=== PATIENT | male | born 1945 | race Caucasian/White ===

== ENCOUNTER → 2016-11-23 | Outpatient (CLI) | payer BC ==
[2016-11-23 10:19] LABS: BASOPHILS # (AUTO) 0.04 10*3/UL; BASOPHILS % (AUTO) 0.4 % (0-1); EOSINOPHILS % (AUTO) 0.9 % (0-8); HEMATOCRIT 44.1 % (42.0-52.0); HEMOGLOBIN 14.6 g/dL (14.0-18.0); IMM GRAN % (AUTO) 0.3 % (0-5); IMM GRAN# (AUTO) 0.03 10*3/UL; LYMPHOCYTES # (AUTO) 1.89 10*3/uL; LYMPHOCYTES % (AUTO) 18.4 % (10-50); MEAN CORPUSCULAR HEMOGLOBIN 28.5 PG (27-31); MEAN CORPUSCULAR HGB CONC 33.1 g/dL (33-37); MEAN PLATELET VOLUME 10.2 FL (7.4-12.2); MONOCYTES # (AUTO) 0.47 10*3/UL (0.3-0.8); MONOCYTES % (AUTO) 4.6 % (5-15); NEUTROPHILS # (AUTO) 7.76 10*3/UL; NEUTROPHILS % (AUTO) 75.4 % (50-80); RDW COEFFICIENT OF VARIATION 15.9 % (11.5-14.5); RED BLOOD COUNT 5.12 10^6/uL (4.70-6.10); WHITE BLOOD COUNT 10.28 10^3/uL (4.8-10.8)
[2016-11-23 10:22] LABS: PLATELET MORPHOLOGY COMMENT NORMAL MORPHOLOGY (NORM)
[2016-11-23 10:41] LABS: BILIRUBIN,TOTAL 0.5 mg/dL (0.3-1.2); CALCIUM 9.4 mg/dL (8.7-10.7); CREATININE 1.1 mg/dL (0.70-1.50); LDL CHOLESTEROL,CALCULATED 150.8 mg/dL; POTASSIUM 4.2 meq/L (3.8-5.2); TOTAL PROTEIN 7.6 g/dL (6.1-8.0)
== END ==
LOC: MOB LAB 09:32
PROVIDERS: ATTEND Internal Medicine
DX: G93.1 Anoxic brain damage, not elsewhere classified (principal); I15.9 Secondary hypertension, unspecified; R60.9 Edema, unspecified; E78.2 Mixed hyperlipidemia; Z12.5 Encounter for screening for malignant neoplasm of prostate
CPT/HCPCS: 36415; 80053; 80061; 85025; G0103

== ENCOUNTER → 2016-11-25 | Outpatient (CLI) | payer BC | LOC: MMPC 11:11 | PROVIDERS: ATTEND Internal Medicine | DX: E78.2 Mixed hyperlipidemia (principal); I50.9 Heart failure, unspecified; G93.1 Anoxic brain damage, not elsewhere classified; K25.1 Acute gastric ulcer with perforation; Z23 Encounter for immunization | CPT/HCPCS: 90656; 90715; G0463 ==

== ENCOUNTER 2017-03-23 09:02 | Inpatient (IN) | payer BC ==
[2017-03-23] MEDS ORDERED: NORMAL SALINE 10 ML SYRINGE FLUSH IVP PRN ×2 (09:16→13:49)
--- NOTE | 2017-03-23 09:20 | PDOC ---
General Adult HPI - General Chief Complaint: Altered Mental Status Stated Complaint: mental status changes Date Seen by Provider: 03/23/17 Time Seen by Provider: 09:10 Source: POSITIVE: Patient, Spouse Exam Limitations: POSITIVE: No limitations Nurse's Notes Reviewed & Considered: Yes - History of Present Illness Initial Comment: The patient is a 72-year-old male who is brought to the emergency department with increased weakness cough and confusion. His reports that over the past several days he is had increased confusion and his mouth has been dry. He apparently has a history of a chronic left hip problem and has limited mobility at home at baseline. Over the past couple of days he has been even weaker and it was very difficult to even get him into the car. He had to be assisted out of the car into a wheelchair to get into the emergency room. His reports that he has had increased cough especially at night over the past couple of days as well. The patient himself denies any headache, chest pain, abdominal pain, vomiting or diarrhea. His reports that over the past several days he has had some urinary symptoms. She states that he thinks he has to go however that is then unable. She has not noticed any fever. He has had several minor falls at home over the weekend. Have you received a tetanus shot in the past 10 years?: Unknown - Patient Home Medications Home Medications: Home Medications Docusate Sodium [Doc-Q-Lace] 1 cap PO BID cap 08/18/14 Melatonin 2 tab PO HS PRN tab 08/18/14 Multivitamin [Uhb-Iurfow-Aktyi] 1 tab PO QD tab 08/18/14 Thiamine Mononitrate [Vitamin B-1] 1 tab PO QD #90 tab 12/06/14 Furosemide 1 tab PO QAM #90 tab 11/25/16 Linaclotide [Linzess] 1 cell PO DAILY #90 cap 11/25/16 Pantoprazole Sodium 1 tab PO QD #90 tab 11/25/16 Acetaminophen/Diphenhydramine [Tylenol Pm Ex-Strength Caplet] 2 each PO BEDTIME 03/23/17 - Patient Allergies Allergies/Adverse Reactions: Allergies Allergy/AdvReac Type Severity Reaction Status Date / Time No Known Allergies Allergy Verified 03/23/17 09:12 Past Medical History - heen HEENT History: Blindness Additional HEENT History: left eye Cardiovascular History: Hypertension Respiratory History: Denies History Gastrointestinal History: Denies History Genitourinary History: Denies History Endocrine History: Denies History Musculoskeletal History: Back Pain, Joint Pain Prosthesis or Implant: No Additional Musculoskeletal History: left hip and knee pain Neurological History: Denies History Blood Disorders: Denies History Psychiatric History: Denies History History of Sexually Transmitted Diseases: No Cancer History: Denies History History of MDRO: No History of Other Communicable Diseases: No Alcohol Use: Rarely Substance Use Type: None Previous Surgical History: Yes Type / Date of Surgery: BILATERAL CATARACTS, TONSILLECTOMY Anesthesia Reactions: No Malignant Hyperthermia: No Significant Family History: Cancer, Other (please comment) Additional Family History: FATHER WITH BRAIN CANCER Past Medical History Reviewed: Reviewed - No Changes ROS - Limitations ROS Limitations: No Limitations Constitution: DENIES: Chills, Fever Cardiovascular: REPORTS: Edema (He does have chronic edema in the lower extremities). DENIES: Chest Pain, Heart Palpitations Respiratory: REPORTS: Cough Non Productive. DENIES: Hurts To Breathe Neurological: REPORTS: Confusion, Weakness (Generalized weakness, no focal weakness). DENIES: Headache, Numbness Gastrointestinal: DENIES: Abdominal Pain, Nausea, Vomitting, Diarrhea Endocrine: REPORTS: Other (Dry mouth, no history of diabetes) Genitourinary: REPORTS: Difficulty Urinating (As above) Eyes: REPORTS: Denies Symptoms ENT: REPORTS: Denies Symptoms Skin: DENIES: Rash General Adult Exam - General Appearance General Appearance: POSITIVE: Cooperative, No Acute Distress, Other (The patient is awake) - HEENT HEENT: POSITIVE: Head Inspection Nml, Eyes Inspection Nml, Pharynx Inspect. Nml (No visible swelling in the mouth or posterior oropharynx), Dry Mucous Membranes - Neck Neck: POSITIVE: Normal Inspection. NEGATIVE: Lymphadenopathy - Respiratory Respiratory: POSITIVE: No Respiratory Distress, Other (Diminished breath sounds bilaterally) - Cardiovascular Cardiovascular: POSITIVE: Regular Rate & Rhythm, No Murmur Peripheral Pulses: Dorsalis-pedis (R): 2+, Dorsalis-pedis (L): 2+ - Abdomen Abdomen: Normal Bowel Sounds: (All Quadrants), No Guarding: (All Quadrants), No Rebound: (All Quadrants), No Distention: (All Quadrants) - Skin Skin: POSITIVE: Normal Color, Other (Several minor abrasions to the shins bilaterally, no clinical evidence of cellulitis) - Extremities Additional Extremities Details: He does have edema in the lower extremities bilaterally - Neurological / Psychological Neurological: POSITIVE: Oriented X3, software support representative Normal As Tested, Motor Normal, Sensation Normal, Other (No focal neurologic deficits) General Adult Progress - Results Reviewed by me Xrays/CTs/US Reviewed by me: Yes Discussed with Radiologist: Yes Radiology Findings: CT scan of his head reveals age-related atrophy with no acute findings per radiologist. Chest x-ray shows increased markings in the perihilar region and a small right pleural effusion per radiologist. Lab Results Reviewed: Yes (some chemistries still pending) Lab Results:: Laboratory Results 03/23/17 03/23/17 Range/Units 09:31 09:41 WBC 10.98 H (4.8-10.8) 10^3/uL RBC 4.91 (4.70-6.10) 10^6/uL Hgb 13.7 L (14.0-18.0) g/dL Hct 42.5 (42.0-52.0) % MCV 86.6 (80-90) FL MCH 27.9 (27-31) PG MCHC 32.2 L (33-37) g/dL RDW Std Deviation 51.1 H (39-50) fL RDW Coeff of Jyoti 16.5 H (11.5-14.5) % Plt Count 279 (140-350) 10*3/uL MPV 10.1 (7.4-12.2) FL Immature Gran % (Auto) 0.2 (0-5) % Neut % (Auto) 80.3 H (50-80) % Lymph % (Auto) 12.6 (10-50) % [place] % (Auto) 5.3 (5-15) % Eos % (Auto) 1.1 (0-8) % Baso % (Auto) 0.5 (0-1) % Immature Gran # (Auto) 0.02 10*3/UL Neut # (Auto) 8.83 10*3/UL Lymph # (Auto) 1.38 10*3/uL [place] # (Auto) 0.58 (0.3-0.8) 10*3/UL Eos # (Auto) 0.12 10*3/UL Baso # (Auto) 0.05 10*3/UL WBC Morphology Comment Normal morphology (NORM) Plt Morphology Comment Normal morphology (NORM) RBC Morph Comment Normal morphology (NORM) VBG pH 7.46 H (7.32-7.42) VBG pCO2 31 L (45-55) mmHg VBG HCO3 22 (22-26) mmol/L VBG Base Excess -2 (-2-2) MMOL/L Troponin I 0.000 (< 0.040) ng/mL EKG Interpreted/Reviewed By Me:: Yes EKG Interpretation:: POSITIVE: Normal Sinus Rhythm, Normal Rate, Normal Intervals, Normal ST/T, Other (He does have Q waves in the inferior leads which were present on a previous EKG from 2013, no acute changes in his EKG) - Patient's Progress MDM / ED Course: Blood cultures and lactate were drawn with IV start. The patient did receive a 1 L bolus of normal saline. The patient's oxygenation is borderline dipping into the upper 80s at times. His blood work reveals a mildly elevated white count. Chemistries on the venous blood gas were normal for the most part except for slightly elevated BUN 30 and his blood sugar was 1:30. His pH was normal. Chest x-ray shows increased interstitial markings in the perihilar region and small right-sided pleural effusion. Troponin is normal and EKG shows no acute findings. BNP is pending. CT scan of his head reveals no acute findings. The patient's increased confusion, cough and chest x-ray findings are consistent clinically with pneumonia. A catheter UA will be obtained and the patient will be started on Rocephin and Zithromax for treatment of pneumonia. I did discuss these findings with the patient and his family. Dr. Rosales has agreed to admit the patient for further treatment. - Consult Counseled: POSITIVE: Patient, Family, RE: Lab Results, RE: Radiology Results, RE : DX Patient Care Time - Estimated PCT Patient Care Time (In Minutes): 35 Vital Signs - Recent Vital Signs Vital Signs: Vital Signs (Last 8 hours) Temp Pulse Resp BP Pulse Ox 03/23/17 09:03 96.5 F L 75 18 141/100 92 - VS Reviewed Vital Signs Reviewed: Yes Discharge Clinical Impression: Weakness generalized, Fall at home, Pneumonia Discharge Disposition: Admit to Inpatient Condition: Fair Date Decision to Admit to Inpatient: 03/23/17 Time Decision to Admit to Inpatient: 11:15
[2017-03-23] MEDS: Sodium Chloride 0.9% 1,000 ML PRIMARY IV ONE ×2 (09:30→11:32)
[2017-03-23 09:42] LABS: BASOPHILS # (AUTO) 0.05 10*3/UL; BASOPHILS % (AUTO) 0.5 % (0-1); EOSINOPHILS # (AUTO) 0.12 10*3/UL; EOSINOPHILS % (AUTO) 1.1 % (0-8); HEMATOCRIT 42.5 % (42.0-52.0); HEMOGLOBIN 13.7 g/dL (14.0-18.0); LYMPHOCYTES # (AUTO) 1.38 10*3/uL; MEAN CORPUSCULAR HEMOGLOBIN 27.9 PG (27-31); MEAN CORPUSCULAR HGB CONC 32.2 g/dL (33-37); MEAN CORPUSCULAR VOLUME 86.6 FL (80-90); MEAN PLATELET VOLUME 10.1 FL (7.4-12.2); MONOCYTES # (AUTO) 0.58 10*3/UL (0.3-0.8); MONOCYTES % (AUTO) 5.3 % (5-15); NEUTROPHILS # (AUTO) 8.83 10*3/UL; NEUTROPHILS % (AUTO) 80.3 % (50-80); RED BLOOD COUNT 4.91 10^6/uL (4.70-6.10)
[2017-03-23 09:43] LABS: PLATELET MORPHOLOGY COMMENT NORMAL MORPHOLOGY (NORM); RBC MORPHOLOGY COMMENT NORMAL MORPHOLOGY (NORM); WBC MORPHOLOGY COMMENT NORMAL MORPHOLOGY (NORM)
--- NOTE | 2017-03-23 09:47 | EKG ---
[address] [address] Measurements Intervals Munith Rate: 67 P: 52 MS: 238 QRS: 52 QRSD: 103 T: 25 QT: 406 QTc: 421 Interpretive Statements SINUS RHYTHM WITH FIRST DEGREE AV BLOCK POSSIBLE INFERIOR MYOCARDIAL INFARCTION , PROBABLY OLD Compared to ECG 07/10/2014 17:31:18 First degree AV block now present Myocardial infarct finding now present Electronically Signed On 03-23-17 15:05:17 MDT by Buddy Jose [email or web address]
[2017-03-23 10:05] LABS: VENOUS PH 7.46 (7.32-7.42)
--- NOTE | 2017-03-23 10:46 | DI ---
CT HEAD W/O CONTRAST,03/23/2017 9:16 AM: Clinical History: Generalized weakness and confusion. Previous Exam: July 16, 2014 Findings: Multiple helically acquired CT images are obtained through the brain without contrast. There is stabl e diffuse age-related volume loss. There is no mass, hemorrhage or midline shift. The surrounding sof t tissue and osseous structures are unremarkable. Paranasal sinuses are unremarkable. Impression: Diffuse age-related volume Loss otherwise unremarkable.
--- NOTE | 2017-03-23 10:47 | DI ---
XR CXR 2VW PA/LAT,03/23/2017 9:16 AM: Clinical History: Cough Previous Exam: July 17, 2014 Findings: PA and lateral views of the chest are obtained, and demonstrate a small right pleural effusion. There is mild cardiomegaly. There is some mild increased interstitial markings in the perihilar regio n. There is no mass. There is no infiltrate. Impression: New small right pleural effusion otherwise unchanged.
[2017-03-23] MEDS ORDERED: cefTRIAXone Inj 1 GM in Sodium Chloride 0.9% 100 ML IV ONE (11:18)
--- NOTE | 2017-03-23 12:17 | PDOC ---
History and Physical - History of Present Illness Date and Time of Service: 03/23/2017 1:40 PM Chief Complaint: Weakness for the last 3-4 days, cough also the last 3-4 days History of Present Illness: This is a 72 years old male with past medical history significant for history of GERD, osteoarthritis and obesity who was brought to the hospital for evaluation because of weakness this is being going on for the last 3-4 days, in addition he did report some cough with no significant phlegm production. He denied chest pain, denied shortness of breath. Evaluation in the ER raised the possibility of early pneumonia he was given antibiotics after culture was taken and he was admitted. He said normally he is able to get up and go to the bathroom using a walker, he needs 2 people assist, based on his description now. He said he would have a bowel movement every 3-4 days. Rest of review of systems is unremarkable. Past Medical History Medical History: 1. GERD. 2. Admission in 2013 at that time he had perforated peptic ulcer needed surgery then he developed acute respiratory failure and was transferred to [facility] post surgery. 3. Osteoarthritis. 4. On Oxygen at night Surgical History: 1. Surgery for perforated peptic ulcer 2013. 2. Cataract. 3. Tonsillectomy Family History: Reviewed an Not Pertinent Past Social History: Used to smoke, rarely drinks. No drugs. Lives with his . Tobacco Use: Former Smoker Substance Use Type: None Alcohol Use: Rarely Medication / Allergies Home Medications: Home Medications Medication Instructions Recorded Confirmed Type Docusate Sodium [Doc-Q-Lace] 1 cap PO BID cap 08/18/14 03/23/17 History Melatonin 2 tab PO HS PRN tab 08/18/14 03/23/17 History Multivitamin [Bmg-Xuxcga-Vcagi] 1 tab PO QD tab 08/18/14 03/23/17 History Thiamine Mononitrate [Vitamin B-1] 1 tab PO QD #90 tab 12/06/14 03/23/17 Clinic Furosemide 1 tab PO QAM #90 tab 11/25/16 03/23/17 Clinic Linaclotide [Linzess] 1 cell PO DAILY #90 cap 11/25/16 03/23/17 Clinic Pantoprazole Sodium 1 tab PO QD #90 tab 11/25/16 03/23/17 Clinic Acetaminophen/Diphenhydramine 2 each PO BEDTIME 03/23/17 03/23/17 History [Tylenol Pm Ex-Strength Caplet] Allergies/Adverse Reactions: Allergies Allergy/AdvReac Type Severity Reaction Status Date / Time No Known Allergies Allergy Verified 03/23/17 09:12 Review of Systems - Review of Systems All Systems: Reviewed & No Additional Complaints Except as Stated Exam - General General Appearance: POSITIVE: No Acute Distress, Obese - Head Head Exam: POSITIVE: Normal Inspection, Atraumatic - Eye Eye Exam: POSITIVE: Normal Appearance - ENT ENT Exam: POSITIVE: Normal Exam - Neck Neck Exam: POSITIVE: Normal Inspection - Respiratory Respiratory Exam: POSITIVE: Clear to Auscultation - Bilaterally - Cardiovascular Cardiovascular Exam: POSITIVE: RRR - GI/Abdominal GI/Abdominal Exam: POSITIVE: Normal Bowel Sounds, Non Tender, Non Distended, Soft - Rectal Rectal Exam: POSITIVE: Deferred - External Exam: POSITIVE: Deferred - Extremities Extremities Exam: POSITIVE: Normal Inspection - Back Back Exam: POSITIVE: Normal Inspection - Neurological Neurological Exam: POSITIVE: Alert, CN II-XII Intact, No Facial Droop Additional Neurological Exam Details: He did not know the day, but he knows the month and the year. He knows he is in the hospital. There is a some weakness in the left leg compared to the right one but he said this is old. - Psychiatric Psychiatric Exam: POSITIVE: Normal Affect - Integumentary Additional Integumentary Exam Details: Few scabs noted on the anterior shins, he said these are old being going on for few years on and off. Results - Labs CBC and BMP: 03/23/17 09:41 03/23/17 09:41 - EKG Data Rate: Normal EKG Shows Normal: Sinus Rhythm - EKG Data Additional EKG Details: Sinus rhythm with first-degree AV block, there is Q-wave in lead 3. - Imaging Status: Report Reviewed by Me (CT of the head showed diffuse age-related volume loss otherwise unremarkable, Chest x-ray showed no small right pleural effusion , there is some mild increased interstitial marking in the perihilar region) Assessment and Plan - Patient Problems (1) Pneumonia Current Visit: Yes Status: Acute Comment: He was put on antibiotics will continue with antibiotics. He is weak so we'll ask PT and OT to work with him. (2) GERD (gastroesophageal reflux disease) Current Visit: Yes Status: Acute Comment: Continue previous medications (3) DVT prophylaxis Current Visit: Yes Status: Acute Comment: Will put him on SCDs Photo / Body Diagrams - Uploaded Photos Uploaded Photos:
[2017-03-23 12:32] LABS: BILIRUBIN,URINE NEGATIVE (NEG); COLOR,URINE YELLOW; GLUCOSE, URINE (UA) NEGATIVE (NEG); NITRATE,URINE POSITIVE (NEG); OCCULT BLOOD,URINE NEGATIVE (NEG); PH,URINE 5.5 (5.0-8.5); PROTEIN,URINE NEGATIVE (NEG)
[2017-03-23 12:37] LABS: CLARITY,URINE CLEAR (CLEAR)
[2017-03-23 12:46] LABS: AMPHETAMINE SCREEN NEGATIVE (NEG); BACTERIA,URINE FEW; CANNABINOID SCREEN,URINE NEGATIVE (NEG); COCAINE SCREEN NEGATIVE (NEG); METHADONE URINE SCREEN NEGATIVE (NEG); METHAMPHETAMINES SCREEN,URINE NEGATIVE (NEG); OPIATE SCREEN,URINE NEGATIVE (NEG); SQUAMOUS EPITHELIAL CELL,UR FEW; URINE SAMPLE TYPE CATH SPECIMEN; URINE SPECIFIC GRAVITY - MAN 1.015
[2017-03-23] MEDS ORDERED: LIDOCAINE W/ SODIUM BICARB 0.5 ML SYR SUBD PRN (13:49)
[2017-03-23 14:11] LABS: BLOOD UREA NITROGEN 27 mg/dL (7-22); BUN/CREATININE RATIO 24.54 (6-20); CALCIUM 8.9 mg/dL (8.7-10.7); MAGNESIUM 2.2 mg/dL (1.6-2.4)
[2017-03-23 14:13] LABS: EST GLOMERULAR FILTRATION > 60 (>60 ml/min/1.73m(2))
[2017-03-23] MEDS: Sodium Chloride 0.9% 1,000 ML IV SCH ×2 (15:11→19:04)
[2017-03-23] MEDS: DOCUSATE 100 MG CAPSULE PO SCH (20:56)
[2017-03-24 06:01] LABS: BASOPHILS # (AUTO) 0.08 10*3/UL; BASOPHILS % (AUTO) 1.1 % (0-1); EOSINOPHILS # (AUTO) 0.19 10*3/UL; EOSINOPHILS % (AUTO) 2.5 % (0-8); HEMATOCRIT 38.2 % (42.0-52.0); HEMOGLOBIN 12.4 g/dL (14.0-18.0); LYMPHOCYTES # (AUTO) 1.83 10*3/uL; MEAN CORPUSCULAR HEMOGLOBIN 28.5 PG (27-31); MEAN CORPUSCULAR HGB CONC 32.5 g/dL (33-37); MEAN CORPUSCULAR VOLUME 87.8 FL (80-90); MONOCYTES # (AUTO) 0.56 10*3/UL (0.3-0.8); MONOCYTES % (AUTO) 7.4 % (5-15); NEUTROPHILS # (AUTO) 4.91 10*3/UL; NEUTROPHILS % (AUTO) 64.5 % (50-80); RED BLOOD COUNT 4.35 10^6/uL (4.70-6.10)
[2017-03-24 06:05] LABS: PLATELET MORPHOLOGY COMMENT NORMAL MORPHOLOGY (NORM); RBC MORPHOLOGY COMMENT NORMAL MORPHOLOGY (NORM); WBC MORPHOLOGY COMMENT NORMAL MORPHOLOGY (NORM)
[2017-03-24 06:15] LABS: CALCIUM 8.1 mg/dL (8.7-10.7)
[2017-03-24 06:16] LABS: SERUM ALBUMIN 3.1 g/dL (3.5-4.8)
[2017-03-24] MEDS ORDERED: MELATONIN PO PRN (09:04)
--- NOTE | 2017-03-24 09:10 | PDOC(PROG) ---
Date and Time of Service: 03/24/2017 9:07 AM Interval History: Subjective Patient feels stronger today compared to yesterday, no significant cough, denying chest pain, denying shortness of breath. Objective : Data - Labs CBC and BMP: 03/24/17 05:55 03/24/17 05:55 Labs - Last 24 Hours: Laboratory Results 03/23/17 03/23/17 03/24/17 Range/Units 12:27 18:00 05:55 WBC 7.60 (4.8-10.8) 10^3/uL RBC 4.35 L (4.70-6.10) 10^6/uL Hgb 12.4 L (14.0-18.0) g/dL Hct 38.2 L (42.0-52.0) % MCV 87.8 (80-90) FL MCH 28.5 (27-31) PG MCHC 32.5 L (33-37) g/dL RDW Std Deviation 51.3 H (39-50) fL RDW Coeff of Jyoti 16.3 H (11.5-14.5) % Plt Count 223 (140-350) 10*3/uL MPV 10.0 (7.4-12.2) FL Immature Gran % (Auto) 0.4 (0-5) % Neut % (Auto) 64.5 (50-80) % Lymph % (Auto) 24.1 (10-50) % [place] % (Auto) 7.4 (5-15) % Eos % (Auto) 2.5 (0-8) % Baso % (Auto) 1.1 H (0-1) % Immature Gran # (Auto) 0.03 10*3/UL Neut # (Auto) 4.91 10*3/UL Lymph # (Auto) 1.83 10*3/uL [place] # (Auto) 0.56 (0.3-0.8) 10*3/UL Eos # (Auto) 0.19 10*3/UL Baso # (Auto) 0.08 10*3/UL WBC Morphology Comment Normal morphology (NORM) Plt Morphology Comment Normal morphology (NORM) RBC Morph Comment Normal morphology (NORM) Sodium 146.0 H (135-145) meq/L Potassium 4.4 (3.8-5.2) meq/L Chloride 114.0 H (98-112) meq/L Carbon Dioxide 23.0 (23-33) meq/L Anion Gap 9.0 (5-20) BUN 22.0 (7-22) mg/dL Creatinine 1.0 (0.70-1.50) mg/dL Estimated GFR Acid Purification Equipment Operator BUN/Creatinine Ratio 22.00 H (6-20) Glucose 100.0 (78-110) mg/dL Calculated Osmolality 304.50 H (267-292) mOsm/kg Lactic Acid 0.6 L (0.70-2.10) MMOL/L Calcium 8.1 L (8.7-10.7) mg/dL Total Bilirubin 0.5 (0.3-1.2) mg/dL AST 19.0 L (21-57) IU/L ALT 35.0 (21-72) IU/L Alkaline Phosphatase 81.0 (38-126) IU/L Total Protein 6.7 (6.1-8.0) g/dL Albumin 3.1 L (3.5-4.8) g/dL Globulin 3.6 (2.50-4.10) g/dL Albumin/Globulin Ratio 0.80 L (1.3-2.0) mg/g Ur Collection Type Cath specimen Urine Color Yellow Urine Clarity Clear (CLEAR) Urine pH 5.5 (5.0-8.5) Ur Specific [place] 1.015 (1.005-1.030) U Specif Grav (Refrac) 1.015 Urine Protein Negative (NEG) mg/dl Urine Glucose (UA) Negative (NEG) mg/dL Urine Ketones Negative (NEG) Urine Occult Blood Negative (NEG) Urine Nitrate Positive H (NEG) Urine Bilirubin Negative (NEG) Urine Urobilinogen 1.0 (0.2) EU/dL Ur Leukocyte Esterase Negative (NEG) Urine RBC None (NONE) /hpf Urine WBC None (NONE) Ur Squamous Epith Cells Few (NONE) Ur Renal Epithelial Cell None (NONE) Urine Crystals None Urine Bacteria Few (NONE) Urine Casts None (NONE) Urine Mucus Few (NONE) Urine Trichomonas None (NONE) Urine Yeast None (NONE) Ur Culture Indicated? Culture not set Urine Opiates Screen Negative (NEG) Ur Buprenorphine Negative (NEG) Ur Oxycodone Screen Negative (NEG) Urine Methadone Screen Negative (NEG) Ur Propoxyphene Screen Negative (NEG) Barbiturate Screen Negative (NEG) U Tricyclic Antidepress Negative (NEG) Phencyclidine Screen Negative (NEG) Amphetamines Screen Negative (NEG) U Methamphetamines Scrn Negative (NEG) Benzodiazepines Screen Negative (NEG) Cocaine Screen Negative (NEG) U Marijuana (THC) Screen Negative (NEG) Objective : Exam - General General Appearance: No Acute Distress, Cooperative, Obese - Head Head Exam: Normal Inspection - Eye Eye Exam: Normal Appearance - ENT ENT Exam: Normal Exam - Neck Neck Exam: Normal Inspection - Respiratory Respiratory Exam: Clear to Auscultation - Bilaterally - Cardiovascular Cardiovascular Exam: RRR - GI/Abdominal GI/Abdominal Exam: Normal Bowel Sounds, Non Tender, Non Distended, Soft - Rectal Rectal Exam: Deferred - External Exam: Deferred - Extremities Extremities Exam: Normal Inspection - Neurological Neurological Exam: Alert, Oriented x 3, CN II-XII Intact, No Facial Droop Additional Neurological Exam Details: His speech is more clear today compared to yesterday. Still have weakness in the left leg, he says this is old. Assessment and Plan - Patient Problems (1) Pneumonia Current Visit: Yes Status: Acute Comment: Continue current antibiotics. Continue PT and OT will speak with the senior planner about swing bed for him. (2) GERD (gastroesophageal reflux disease) Current Visit: Yes Status: Acute Comment: Same med (3) DVT prophylaxis Current Visit: Yes Status: Acute Comment: We'll start him on Lovenox Photo / Body Diagrams - Uploaded Photos Uploaded Photos:
[2017-03-24] MEDS: PANTOPRAZOLE 40 MG TABLET PO SCH (09:18)
[2017-03-24] MEDS: DOCUSATE 100 MG CAPSULE PO SCH ×2 (09:19→20:21)
[2017-03-24] MEDS: Linaclotide Cap 290 MCG CAPSULE PO SCH (09:25)
[2017-03-24] MEDS: Multivitamin Tab 1 TAB PO SCH (09:25)
--- NOTE | 2017-03-24 11:31 | PT.PROG ---
Progress Note Progress Note: S: pt. reports pain in both of his knees, a desire to go home, and decreased motivation to do activity. In talking to his she states he needs to improve a lot functionally before he can return home because she his having difficulty assisting him with his ADLs in his current state. She also states he does not perform HEPs despite her assistance. O: pt. continues to display weakness throughout his body, more significantly in his LE. His R leg has minimal strength while his L has almost none. pt. performed bed mobility exercise with max assist, walked 15ftx2 with max assist, and sit to stand 5x with max assist over the course of the treatment. pt. performed marching in his wheel chair 2x10 each leg and LAQ 2x10 each leg. A: pt. had tremendous difficulty with functional activity and exercise. He showed greater weakness in the L leg than in the R. He seems content with his sedentary lifestyle, so finding the motivation to perform activity seems to be the biggest problem facing this pt. P: continue to work functional activity; sit to stand, walking, standing balance , seated balance, and bed mobility. continue to work LE/UE musculature to improve strength and functional ability. Morteza Garrison SPT
[2017-03-24] MEDS: Sodium Chloride 0.9% 1,000 ML IV SCH (11:33)
[2017-03-24] MEDS: cefTRIAXone Inj 1 GM in Sodium Chloride 0.9% 100 ML IV SCH (13:20)
[2017-03-24] MEDS ORDERED: LIDOCAINE HCL 2 % 10 ML JELLY URO-JECT TOPICAL ONE (13:31)
--- NOTE | 2017-03-24 16:24 | PT.PROG ---
Progress Note Progress Note: 03/24/17 3:00-3:30 S: pt. was given a catheter prior to session and complained about the discomfort. He was more willing to participate in therapy for the afternoon session. O: pt. displayed similar weakness to the morning session. Pt. performed seated marching to a step 2x10 each leg to a 1" step and 1x10 to a 3" step. Pt. then ambulated with max assist 15ft 3x. He performed 5 sit to stands over the course of his session. A: pt. was able to get significantly more activation in his L LE with activity, likely linked to his motivation level being higher this afternoon. He tolerated exercise better and put in a good effort with what was asked of him. continuing to try to motivate and stress the importance of activity will be crucial to continue improving. P: Progress his ambulation by at least 15 more ft. for the next session, and target more sit to stand activity.
--- NOTE | 2017-03-24 16:34 | OT.PROG ---
Progress Note Progress Note: S: pt made every excuse possible to get out of attending therapy. pt states that he likes to be pulled backwards in w/c. O: Pt was seen in his room, and was in a supine position in bed. After waking pt, he was assisted with transition to EOB with Max A x2. ADL dressing of LE was completed with Max A and transferred approx 8-10 ft x2 man assist for safety. After PT completed treatment, he completed UE exercises with Red T- band to increase strength to assist with postural transitions. He completed exercises in all planes, all with BUE x 15. Pt was returned to his room by PT. A: pt is not motivated and uses any excuses possible to get out of completing work with therapy or complete any activities Ind. He demonstrates some flexion contracture. P: continue to progress per plan of care.
[2017-03-25] MEDS: NYSTATIN 15 GM POWDER TOPICAL PRN (02:09)
[2017-03-25] MEDS: ENOXAPARIN SODIUM 40 MG/0.4 ML SYRINGE SUBCUT SCH (08:50)
[2017-03-25] MEDS: TAMSULOSIN 0.4 MG CAPSULE PO SCH (08:50)
[2017-03-25] MEDS: Linaclotide Cap 290 MCG CAPSULE PO SCH (08:50)
[2017-03-25] MEDS: PANTOPRAZOLE 40 MG TABLET PO SCH (08:50)
[2017-03-25] MEDS: DOCUSATE 100 MG CAPSULE PO SCH ×2 (08:50→21:36)
[2017-03-25] MEDS: Multivitamin Tab 1 TAB PO SCH (08:50)
--- NOTE | 2017-03-25 10:13 | PTI REPORT ---
Thank you for the referral of Jose Bullard. He was seen on 03/23/17 for an inpatient evaluation secondary to generalized weakness. SUBJECTIVE: The patient is a 72-year-old male with a primary complaint of weakness over the last three to four days. The patient has also had a cough over the last three to four days. The patient lives at home with his in a modular that has a ramp to get inside and no other stairs to traverse once in the house. The patient uses a four wheeled walker in the house. The patient is currently being seen for pneumonia, GERD, and DVT prophylaxis. The patient is large/ obese and difficult to understand at times. The patient could potentially have cognition problems. PAST MEDICAL HISTORY: Past medical history can be found in the patient's medical record. OBJECTIVE FINDINGS: Strength: The patient demonstrates strength in his upper extremities but was very weak in his lower extremities. His left leg needed assistance to move in general. He was able to lift his right leg slightly. Transfers: The patient required assistance from three therapists in order to stand up. Once standing, the patient required two therapists and a walker to support his stance. The patient was unable to get back into bed without assistance from the therapist to lift his upper body and his lower extremities. ASSESSMENT: The patient demonstrates weakness in his lower extremities likely due to a sedentary lifestyle and would benefit from inpatient physical therapy to get him up and moving. The patient's lifestyle and lack of motivation forces the need for constant supervision or else the patient will go back to old habits and gradually worsen over time. Problem List: Patient's general size Generalized weakness Lack of motivation to get out of bed and participate with physical therapy Patient's is becoming more unwilling/unable to take care of the patient at home Short-Term Goals: To be met by discharge from inpatient: Patient will be able to walk to the bathroom with the assistance of two therapists and a walker. Long-Term Goals: To be met following discharge from inpatient: Patient will be able to ambulate independently with four wheeled walker x5 minutes. Patient will return to a functional level where he could participate in a care home. TREATMENT PLAN: Patient will be seen B.I.D during the week and one time per day over the weekend as an inpatient to work on bed mobility, transfers, ambulation, and overall range of motion and strengthening. INITIAL TREATMENT: Treatment today consisted of the initial evaluation followed by sitting the patient at the side of the bed. We then assisted him to stand and assisted him with transferring to the commode. The patient then stood for approximately three minutes. Dictated by: KIN Saldana Supervised by: EAMON Colvin
--- NOTE | 2017-03-25 10:35 | OTI REPORT ---
Thank you for the referral of Jose Bullard. He was seen on 03/23/17 for an occupational therapy inpatient evaluation secondary to weakness. SUBJECTIVE: The patient is a 72-year-old male who is being seen secondary to having pneumonia and decreased abilities to perform his activities of daily living. The patient reports that he [place] He verbalized a couple of times today that his main goal was to sit in his chair and watch TV. He also stated the "sheep are probably vat cleaner than me". The patient reports that his helps him with dressing, showers, etc. The patient reports decreased ability to take care of himself lately. He states his main activity throughout the day is sitting in his recliner and eating. He states he uses a [employer] coffee can to urinate in. He states his is having more difficulty getting him up to stand. The patient also has quite a bit of visual difficulties; he stated there was a bear outside of the window. It was hard to get a thorough history on the patient as he does have difficulty emphasizing his words. They do tend to slur together. The patient did demonstrate some confusion today as well. PAST MEDICAL HISTORY: Past medical history can be found in the patient's medical record. OBJECTIVE FINDINGS: General observations: The patient was supine in bed upon the therapist's arrival. The patient is missing a lot of his dentition. He did have a lot of food drooling out of his mouth on the front of his robe. We did change this for him. Nursing states they have not noticed any eating or swallowing difficulties at this time. We will continue to assess that with the pneumonia diagnosis. Bed mobility: The patient requires max assist x2 to transfer from supine to sit. While sitting edge of bed, the patient demonstrates poor trunk strength and is not able to sit edge of bed. He requires mod assist to stay sitting edge of bed. Transfers: The patient requires max assist x2-3 to complete all transfers. Range of motion: While sitting edge of bed with assistance for his back, the patient demonstrated 0 to 90 degrees of active shoulder flexion. He had full elbow flexion/extension and full wrist flexion/extension. Strength: Strength within the available range in the shoulders was 4/5 for flexion and 3+/5 for abduction. Elbow flexion/extension was 4+/5. Wrist flexion/extension was 3+/5 bilaterally. Activities of daily living: We did try to have the patient dress self. He requires max assist for lower extremity dressing; he was able to lift his foot slightly to don lower extremity clothing and socks. He did not have the balance while sitting edge of bed in order to complete all dressing activities. The patient requires mod assist for upper extremity dressing as he does have difficulty keeping his balance while seated edge of bed. Edema: The patient's legs and upper extremities are swollen. Cognition: The patient's cognition is a concern. He does have difficulty with his expression of speech; it is difficult to understand what the patient is saying. The patient demonstrates some memory difficulties as well. The patient 's cognition will be further assessed when he is a little more stable. ASSESSMENT: Problem List: Decreased ability to perform functional transfers Decreased ability to perform activities of daily living Decreased strength Patient will benefit from a cognitive assessment as he demonstrates noticeable cognitive deficits Short-Term Goals: To be met by discharge from inpatient: Patient will be able to sit edge of bed independently x5 minutes without loss of balance. Patient will be able to dress lower extremities with mod assist with use of adaptive equipment. Patient will improve upper extremity strength to 4+/5. Patient will be able to complete a commode transfer with mod assist and complete toilet hygiene with min assist. Long-Term Goals: To be met following discharge from inpatient: Patient will be able to return home, demonstrating independence with his transfers and ADLs. Patient will be admitted to a swingbed status to continue to improve his ADLs and functional transfers for independence at home. TREATMENT PLAN: Patient will be seen B.I.D during the week and one time per day over the weekend as an inpatient to address the above goals and objectives. The patient will more than likely need a swingbed rehabilitation stay as he requires max assist for most activities. The patient would like to return home. INITIAL TREATMENT: Treatment today consisted of the initial evaluation followed by the patient coming from supine to sit with max assist x2. While sitting edge of bed we worked on sitting balance. The patient required mod assist to stay edge of bed. We then worked on lower extremity dressing which the patient was dependent with. The patient required max assist x2 to transfer from sit to stand to pull up Depends. The patient has a lot of difficulty standing for longer periods of time, even with use of walker. Cognitively the patient needed a lot of verbal cues as to where to place hands when completing functional transfers. MTDD
--- NOTE | 2017-03-25 10:44 | OT AM DAY ---
Diagnosis : Weakness AM - Occupational Therapy S: The patient was in chair upon the therapist's arrival. He had taken a whirlpool bath with the nursing staff. The patient's was also present today and we spoke to her. She states the patient has lost a lot of his function and she is not able to care for him at home anymore. She states the patient will have to improve with his abilities quite immensely before she will feel comfortable to take care of him and take him home. The patient's states last year the patient was at the [facility] for a month or two and when he came home he was on a quadruped cane and was walking all over the place. She states that lately he has hardly been able to walk and when he does she has to help hold him up and they have had quite a few close calls with falling. She states that they do argue and when the patient does not agree with her, she just "gives up" and has a hard time dealing with him. The patient and his did argue over a few activities that she has been helping him with at home. The patient states it is too hard for him to bed into bed but the patient's states that he just won't do it and won't help himself get into bed. She has been having to lift his legs and trunk in order to help him get into bed. O: The patient sat edge of chair and we had the patient try to dress lower extremities. The patient required max assist to don shorts and socks. The patient required min assist to dress upper extremities while sitting in chair. Downstairs in therapy we worked on upper extremity strengthening including upper body ergometer x3 minutes forward followed by wall pulleys with two kilograms for shoulder extension, rows, biceps curls, shoulder adduction x10 repetitions with bilateral upper extremities. The patient stated he had to urinate; we brought the patient back to his room. He is having difficulty moving his Depends over to urinate. The therapist talked to the nurse about possibly making this a little more functional for the patient. Nursing did state that the patient was incontinent throughout the night as well. A: The patient still requires max assist with a lot of different activities. We did have a long discussion with the patient and his about their goals and how we would like it if the patient would participate in a daily therapy program in order to improve his abilities to go home. This patient definitely needs a lot of work and improvement before he can return home. P: Continue seeing patient BID during the week and one time per day over the weekend for upper extremity strengthening, ADLs, and overall functional mobility. SHERYL
[2017-03-25] MEDS ORDERED: ACETAMINOPHEN 325 MG TABLET PO PRN (11:05)
--- NOTE | 2017-03-25 11:05 | PDOC(PROG) ---
Date and Time of Service: 03/25/2017 11 AM Interval History: Subjective Patient denying new symptoms, maybe is more stronger today compared to yesterday. Yesterday had problem emptying his bladder and had a catheter inserted. Apparently he had this problem also at home sometimes. When asked what level his hip pain is and his knee pain it was difficult to assess, his thinks that he is in more pain than what he is describing. He is still weak on the left leg compared to the right leg and this is also old. Objective : Data - Labs CBC and BMP: 03/24/17 05:55 03/24/17 05:55 Objective : Exam - General General Appearance: No Acute Distress, Cooperative, Morbidly Obese - Head Head Exam: Normal Inspection, Atraumatic - Eye Eye Exam: Normal Appearance - ENT ENT Exam: Normal Exam - Neck Neck Exam: Normal Inspection - Respiratory Respiratory Exam: Clear to Auscultation - Bilaterally - Cardiovascular Cardiovascular Exam: RRR - GI/Abdominal GI/Abdominal Exam: Normal Bowel Sounds, Non Tender, Non Distended, Soft - Rectal Rectal Exam: Deferred - External Exam: Deferred - Extremities Extremities Exam: Normal Inspection - Back Back Exam: Normal Inspection - Neurological Neurological Exam: Alert, CN II-XII Intact, No Facial Droop Additional Neurological Exam Details: There is weakness in the left leg compared to the right leg he is describing this as being old. This increased generalized tone. Question cogwheel rigidity - Psychiatric Psychiatric Exam: Flat Affect Assessment and Plan - Patient Problems (1) Pneumonia Current Visit: Yes Status: Acute Comment: Continue current antibiotics. (2) GERD (gastroesophageal reflux disease) Current Visit: Yes Status: Acute Comment: Same med (3) DVT prophylaxis Current Visit: Yes Status: Acute Comment: He is on Lovenox (4) Urinary retention Current Visit: Yes Status: Acute Comment: We put him on Flomax continue, will try to pull his catheter out tomorrow (5) Osteoarthritis Current Visit: Yes Status: Acute Comment: There is weakness in the left leg compared to the right, I think will do an MRI of his back, will do x-rays of his hips and knee. his pain level I is difficult to assess as he is having difficulty describing it. Will write some Tylenol. Question consult orthopedic if his pain worsen. Has some increased tone, but I don't see tremor, will need to see his gait to see whether he has parkinsonian features Photo / Body Diagrams - Uploaded Photos Uploaded Photos:
--- NOTE | 2017-03-25 12:19 | PT.PROG ---
Progress Note Progress Note: 03/25/2017 9:00-9:30 S: pt. showed little motivation for therapy. He stated that he was tired. O: pt. performed seated marching for 2x10 each leg on a 2" box. He then performed sit to stand 10x with seat elevated. lastly the pt: performed 15ft walk 2x and one 20ft walk. He complained of being light headed after walking on the second set, but returned to normal with some rest. A: Pt. is reluctant to perform activity, but will do what is asked of him here with enough encouragement. This would likely not be the case if he were to return home. his reluctancy to perform physical activity, his general unmotivated behavior, and his struggling to get him to participate in any exercise will all eventually lead to him being back in the hospital if he were to return home. P: perform more sit to stand exercise this afternoon (10x). increase walking distance to 4x15ft.
--- NOTE | 2017-03-25 14:20 | DI ---
XR HIP B/L MIN 2VW, EACH HIP,03/25/2017 10:47 AM: Clinical History: Bilateral hip pain. Previous Exam: None at this facility. Findings: AP view of the pelvis as well as AP and frog-leg views of both hips are obtained, and demonstrate adv anced degenerative changes bilaterally. There is complete loss of joint space bilaterally with sclero sis and subchondral cyst formation. Degenerative changes of the lumbar spine are seen. A nonobstructi ve bowel gas pattern is noted. No pathologic calcifications are seen. Impression: Advanced degenerative osteoarthritis of both hips.
--- NOTE | 2017-03-25 14:23 | DI ---
XR KNEE 3 VW,03/25/2017 10:46 AM: Clinical History: Left knee pain. Previous Exam: None at this facility. Findings: 3 views of the left knee are obtained, and demonstrate diffuse osteopenia. There is loss of joint spa ce predominantly within the medial compartment and to a lesser degree within the lateral and anterior compartments. There is some osteophyte formation. Peripheral vascular calcifications are seen. Alignment is near-anatomic and no fractures are seen. Impression: Diffuse degenerative changes of the left knee. Peripheral vascular disease.
[2017-03-25] MEDS: cefTRIAXone Inj 1 GM in Sodium Chloride 0.9% 100 ML IV SCH (15:03)
--- NOTE | 2017-03-25 16:50 | DI ---
MRI LUMBAR SPINE W/O CN,03/25/2017 10:45 AM: Clinical History: Previous Exam: July 12, 2014 Findings: Multiplanar MR images are obtained through the lumbar spine without contrast. Bony alignment is anatomic. No fractures are seen. There are some endplate degenerative changes which are new involving the L4/5 intervertebral disc space. There are some slightly worsening facet arthropathy as well. There has been significant decrease in the size of the psoas muscles and paraspinal musculature. The spinal cord descends normally with normal course, caliber and signal characteristics in a normal conus at the L1 level. Individual intervertebral disc spaces: L1/2: At the L1/2 level, there has been increasing degenerative changes with osteophyte formation ext ends laterally into the left far lateral space and deep to the left psoas muscle. This was not seen o n the prior exam or was not as prominent. There is no significant central canal nor neural foraminal narrowing. L2/3: No significant stenosis. L3/4: No significant stenosis. L4/5: There is disc desiccation, annular fissuring and a broad-based disc bulge with increasing loss of intervertebral disc height at this level and a broad-based disc bulge causing some mild central ca nal stenosis and mild bilateral neural foraminal narrowing. L5/S1: There is some new annular fissuring without significant central canal stenosis. There is mild to moderate bilateral lateral recess stenosis. IMPRESSION: 1. Interval degenerative changes of the endplates at L1/2 with some osteophyte formation causing mass effect of the left under the psoas muscle in the far lateral disc space. This could be causing some pain, but would be less likely to cause weakness. 2. Interval decrease in muscle mass of the psoas muscles and the paraspinal musculature. This could b e due to prolonged inactivity or generalized muscle wasting process. Correlate clinically. 3. Mild increasing degenerative changes of lower lumbar spine at L4/5 and L5/S1 where there is now mi ld to moderate bilateral lateral recess stenosis.
--- NOTE | 2017-03-26 08:23 | PT.PROG ---
Progress Note Progress Note: 03/25/2017 3:30pm-4:00 S:pt. did not want to participate this afternoon more than usual stating it was because he was tired from moving around for all his imaging and testing done today. O: pt. performed sit to stand 10x from his bed with emphasis on getting his shoulders forward and using his hands to press up off the surface he is on. pt. then ambulated 15ft. 3x still complaining of light headedness after, but feels fine with sufficient rest. A: pt. has the physical ability to participate and improve from session to session, but still looks for any excuse to not participate requiring our physical and mental assistance to get him through each session. P: continue to improve his functional activities to help him gain more independence including sit to stand, walking, and bed mobility.
--- NOTE | 2017-03-26 09:12 | PDOC(PROG) ---
Date and Time of Service: 03/26/2017 9:09 AM Interval History: Subjective Patient is denying new symptoms. His cough improved. No shortness of breath. Still weak though. Objective : Data - Labs CBC and BMP: 03/24/17 05:55 03/24/17 05:55 Objective : Exam - General General Appearance: No Acute Distress, Obese - Head Head Exam: Normal Inspection, Atraumatic - Eye Eye Exam: Normal Appearance - ENT ENT Exam: Normal Exam - Neck Neck Exam: Normal Inspection - Respiratory Respiratory Exam: Clear to Auscultation - Bilaterally - Cardiovascular Cardiovascular Exam: RRR - GI/Abdominal GI/Abdominal Exam: Normal Bowel Sounds, Non Tender, Non Distended, Soft - Rectal Rectal Exam: Deferred - External Exam: Deferred - Extremities Extremities Exam: Normal Inspection - Back Back Exam: Normal Inspection - Neurological Neurological Exam: Alert, Oriented x 3, CN II-XII Intact Additional Neurological Exam Details: Unchanged with the weakness still in left lower extremity - Psychiatric Psychiatric Exam: Normal Affect - Integumentary Integumentary Exam: Normal Color Assessment and Plan - Patient Problems (1) Pneumonia Current Visit: Yes Status: Acute Comment: Continue current antibiotics will think about switching him to by mouth either tomorrow or day after, I did speak with the discharge plan about switching him to swing bed and I think it's will not happen until Wednesday (2) GERD (gastroesophageal reflux disease) Current Visit: Yes Status: Acute Comment: Same med (3) DVT prophylaxis Current Visit: Yes Status: Acute Comment: Same med (4) Urinary retention Current Visit: Yes Status: Acute Comment: He is on Flomax will think about maybe taking the catheter out today (5) Osteoarthritis Current Visit: Yes Status: Acute Comment: Wrote for Tylenol when necessary. The x-ray did show advanced osteoarthritis of the hips I did speak with Dr. Mcarthur. He will see him. Lumbar spine MRI showed also degenerative changes. Photo / Body Diagrams - Uploaded Photos Uploaded Photos:
[2017-03-26] MEDS: PANTOPRAZOLE 40 MG TABLET PO SCH (09:37)
[2017-03-26] MEDS: TAMSULOSIN 0.4 MG CAPSULE PO SCH (09:38)
[2017-03-26] MEDS: ENOXAPARIN SODIUM 40 MG/0.4 ML SYRINGE SUBCUT SCH (09:38)
[2017-03-26] MEDS: DOCUSATE 100 MG CAPSULE PO SCH ×2 (09:38→20:05)
[2017-03-26] MEDS: Multivitamin Tab 1 TAB PO SCH (09:38)
[2017-03-26] MEDS: Linaclotide Cap 290 MCG CAPSULE PO SCH (09:39)
--- NOTE | 2017-03-26 11:44 | OT AM DAY ---
Diagnosis : Weakness AM - Occupational Therapy S: The patient appeared ready for therapy. He stated he was okay with getting up. He did ask for shorts. O: The patient was seen in his room, upright in his chair. After visiting with nursing, they declared the patient okay to go downstairs. The patient was assisted with lower extremity dressing with max assist. The patient required max assist x2 to transfer from his chair to wheelchair and he required verbal cues to stand and transfer. The patient has a hard time lower extremities and therefore he is only able to get one leg onto the wheelchair pedals. He requires constant verbal cues to hold his right leg up. The patient was taken downstairs where he completed the upper body ergometer x4 minutes to increase activity tolerance. After PT finished their treatment, the patient completed therapeutic exercise with red theraband in all ranges x10 to increase his strength. He also completed functional reaching task, crossing midline with left and right x10 bilaterally to initiate core strength and overall upper extremity range of motion. Following this activity the patient reported that his neck hurt; most likely due to movement and having to turn and reach. The patient was transferred upstairs with OT and PT. The patient continues to require max assist x2 for transfers. The patient was left in chair with bed alarm on and call light within reach. A: The patient did increase his overall activity tolerance and did participate. His level of motivation is low. We will continue to progress with activity. The patient would prefer most things be done for him rather than do them himself. P: Continue seeing patient BID during the week and one time per day over the weekend for upper extremity strengthening, ADLs, and overall functional mobility. MTDD
--- NOTE | 2017-03-26 11:46 | PT.PROG ---
Progress Note Progress Note: 03/26/2017 9:00am-9:30am S: patient had just awoken an had not received breakfast or medication yet. He was highly unmotivated and unhelpsul to start the day (more than usual), but was better after he ate and received his medication. O: pt. performed bed mobility exercises and education on how to get out of bed and shift weight. pt. then performed 3x20ft walks. A: pt. does seem to participate when he is in the right mood with enough encouragement, but it can be very challenging at times. He is improving in his functional ability and improving his exercise capacity. P: Continue to improve functional activity including bed mobility, come to sit, sitting balance, sit to stand, and walking.
--- NOTE | 2017-03-26 11:50 | OT PM DAY ---
Diagnosis : Weakness PM - Occupational Therapy S: The patient states he did not eat today. He reports that he is not hungry and he has had many tests today including MRIs and x-rays. At first the patient did not want to participate, but he eventually agreed to. O: The patient was seen in his room. Bed mobility was completed with max assist x2. After PT completed a few exercises with the patient in his room, we assisted the patient with a functional transfer approximately 8 feet to wheelchair. The patient was transferred downstairs to therapy. The patient completed some active range of motion exercises in shoulder flexion/extension, shoulder abduction, rows with green theraband, and horizontal abduction/ adduction with green theraband. The patient completed the upper body ergometer x4 minutes to increase his activity tolerance; the patient required a break after each minute. The patient has a hard time holding onto handles while performing the UBE and requires verbal cues to hold on. The patient was returned to his room. He required max assist x2 to transfer from wheelchair to recliner. The patient was left upright in chair with call light within reach and bed alarm on. A: The patient had decreased motivation today. He prefers to have activities completed for him. His activity tolerance may be decreased today as he had to take a break after each minute during the UBE. P: Continue seeing patient BID during the week and one time per day over the weekend for upper extremity strengthening, ADLs, and overall functional mobility. The patient is a possible swingbed candidate; although the therapist questions the patient's overall motivation and ability to show progress. SHERYL
[2017-03-26] MEDS: cefTRIAXone Inj 1 GM in Sodium Chloride 0.9% 100 ML IV SCH (12:49)
--- NOTE | 2017-03-26 13:40 | OT.PROG ---
Progress Note Progress Note: S: pt states he wants to do activities, yet comes up with excuses to not do them. He is ok with staying in hospital a little longer. He reports that he can 't get out of this bed cause it is to soft. He did not report any pain. O: pt was seen in his room this morning and OT assisted PT with bed mobility and transfer to recliner. OT returned later to complete ADL showering. He needed Max A with all showering activities. He also needed Max A with donning of gown and LE pants. He was transferred downstairs for PT. A: pt needs vc's to complete most activities, as he prefers to have people do them for him. Continue to progress and push pt to complete tasks himself. P: continue per plan of care.
[2017-03-26] MEDS: NYSTATIN 15 GM POWDER TOPICAL PRN (20:05)
[2017-03-27] MEDS: TAMSULOSIN 0.4 MG CAPSULE PO SCH (08:52)
[2017-03-27] MEDS: ENOXAPARIN SODIUM 40 MG/0.4 ML SYRINGE SUBCUT SCH (08:52)
[2017-03-27] MEDS: DOCUSATE 100 MG CAPSULE PO SCH ×2 (08:52→21:04)
[2017-03-27] MEDS: CEFUROXIME 500 MG TABLET PO SCH ×2 (08:53→20:13)
[2017-03-27] MEDS: Linaclotide Cap 290 MCG CAPSULE PO SCH (08:53)
[2017-03-27] MEDS: PANTOPRAZOLE 40 MG TABLET PO SCH (08:53)
[2017-03-27] MEDS: Multivitamin Tab 1 TAB PO SCH (08:53)
[2017-03-27] MEDS: AZITHROMYCIN 250 MG TABLET PO SCH (08:53)
--- NOTE | 2017-03-27 13:16 | ORTHO.CON ---
Consult Note - Consult Consult Date: 03/27/17 Reason for Consult: Other (Consultation) Requesting Physician: Dr. Rosales Primary Care Provider: Gulshan Ramirez MD - History of Present Illness History of Present Illness: Patient is a 72-year-old male is coming in to the hospital because of generalized weakness and confusion questionable urinary tract issue versus pneumonia and was worked up because of generalized weakness and part of his workup with complaints of pain in the hip and buttock region was a pelvis x-ray which showed evidence of hip arthritis and a consultation was requested. According to the patient he states 2 weeks ago he was able to walk around inside his house about 10 times per day he states that several years ago he was moving in the direction of having hip replacement surgery when he developed perforated ulcer and then subsequently had encephalopathy. From the history that we could gather between the patient and other healthcare providers is that he had been relatively sedentary for a prolonged period of time and more recently more so. In discussing with therapy he initially would not really because of pain therapy but now is making an effort to try to participate but is still required significant assistance verbal communication reminders just even for simple tasks. He still requires maximum assist with mobilization getting out of a chair to a wheelchair to the bathroom etc. Past Medical History Medical History: 1. GERD. 2. Admission in 2013 at that time he had perforated peptic ulcer needed surgery then he developed acute respiratory failure and was transferred to [facility] post surgery. 3. Osteoarthritis. 4. On Oxygen at night Surgical History: 1. Surgery for perforated peptic ulcer 2013. 2. Cataract. 3. Tonsillectomy Family History: Reviewed an Not Pertinent Past Social History: Used to smoke, rarely drinks. No drugs. Lives with his . Tobacco Use: Former Smoker Substance Use Type: None Alcohol Use: Rarely Medication / Allergies Home Medications: Home Medications Medication Instructions Recorded Confirmed Type Docusate Sodium [Doc-Q-Lace] 1 cap PO BID cap 08/18/14 03/23/17 History Melatonin 2 tab PO HS PRN tab 08/18/14 03/23/17 History Multivitamin [Oid-Nyxciq-Bhtfd] 1 tab PO QD tab 08/18/14 03/23/17 History Thiamine Mononitrate [Vitamin B-1] 1 tab PO QD #90 tab 12/06/14 03/23/17 Clinic Furosemide 1 tab PO QAM #90 tab 11/25/16 03/23/17 Clinic Linaclotide [Linzess] 1 cell PO DAILY #90 cap 11/25/16 03/23/17 Clinic Pantoprazole Sodium 1 tab PO QD #90 tab 11/25/16 03/23/17 Clinic Acetaminophen/Diphenhydramine 2 each PO BEDTIME 03/23/17 03/23/17 History [Tylenol Pm Ex-Strength Caplet] Allergies/Adverse Reactions: Allergies Allergy/AdvReac Type Severity Reaction Status Date / Time No Known Allergies Allergy Verified 03/27/17 06:33 Exam - - Exam: Examination shows that the patient can get his hips close to full extension though does have pain in the buttock region with sitting with flexion to about 100 internal rotation to neutral external rotation about 10 does have pain and discomfort in the buttock and limited motion. Patient with tingling in stocking glove distribution intermittently but at the current time is present from the ankle distally bilaterally he has active dorsiflexion and plantarflexion and I would grade his strength is 5 over 5 of the foot and ankle. Knee strength I would grade as 5 over 5 with extension and flexion still hip flexion does limit some of the testing and he has a fair amount of discomfort with testing of the hips. But has 5 minus over 5 strength. Limited abduction. Otherwise sensory exam is intact. Bilateral lower extremities with edema and swelling from about the knee distally I would grade this as 1-2+. He has brisk refill bilaterally Radiographs of the pelvis show [id number] advanced arthritic changes of both the right and left hip. An MRI of the spine shows that the patient has some rather significant degenerative disc disease he does have a little disc bulging at the L4-5 level with some lateral recess stenosis on the left certainly compared to the right. Degenerative disc disease at multiple other levels otherwise. - Vitals Vital Signs: Vital Signs Temperature 96.8 F Temperature Source Temporal Artery Scan Pulse Rate [Pulse Oximeter] 76 Pulse Rate 64 Respiratory Rate 20 Blood Pressure [Left Radial 124/62 Artery] Blood Pressure [Right Radial 135/55 Artery] Blood Pressure [Right Arm] 132/60 Blood Pressure 146/85 Pulse Ox 97 Oxygen Flow Rate 2 Oxygen Delivery Method Room Air Height 6 ft Weight 126.2 kg Results - Labs CBC and BMP: 03/24/17 05:55 03/24/17 05:55 Assessment and Plan - Assessment / Plan Additional Assessment/Plan Details: Impression: Patient certainly with significant history of deconditioning and weakness exacerbated more recently possibly from an acute either urinary tract or infectious process. Patient with bilateral hip arthritis Patient with left knee arthritis Patient with degenerative disc disease and lumbo-sacral spine with some evidence of spinal stenosis. Plan: The majority of the patient's symptoms above are certainly a long- standing and has slowly likely accumulated these problems and deconditioning from the history there were obtaining from the patient family and other healthcare providers. I certainly think from a radiographic standpoint certainly I joint replacement of the hips could improve the arthritic condition but would it improve the patient overall and I am of the opinion at the current time that he would not be a good candidate nor is this in his best interest. If the patient continued to participate with physical and occupational therapy moving forward and he was able to gain strength and improve his conditioning he might be a candidate for this surgery but he would also need to drop his BMI and noted to be able to do this through an anterior approach. At the current time he will continue to move forward with current plan of care and can follow- up with myself as an outpatient as needed. Discussed this with the patient what multiple questions that were appropriate and we answered them.
--- NOTE | 2017-03-27 13:19 | PDOC(PROG) ---
Interval History: Patient states that he is doing better he did more with the physical therapy today he seems to have more strength. Only took 2 people to help him out of bed instead of 3 according to nursing. He says that his gluteus hurts when he sits a long time or thrill is seen the patient and he does have bilateral hip arthritis . He denies chest pain nausea vomiting and shortness of breath Objective : Data - Labs CBC and BMP: 03/24/17 05:55 03/24/17 05:55 Objective : Exam - General General Appearance: Cooperative - Head Head Exam: Normal Inspection, Atraumatic - Eye Eye Exam: Normal Appearance - Respiratory Respiratory Exam: Clear to Auscultation - Bilaterally, Breathing Non Labored, Normal To Percussion - Cardiovascular Cardiovascular Exam: RRR, No Murmur, No Clicks, No Gallops - Extremities Extremities Exam: No Clubbing Present, No Edema Present Assessment and Plan - Assessment / Plan Additional Assessment/Plan Details: #1 community-acquired pneumonia now on oral antibiotics #2 severe deconditioning told her my colleague that if she is unable to take care of him he is working with physical therapy in the area looks like he is trying to do some more work compared to previous days will discuss further with the social and political studies professor and PT on further planning in regards to this #3 bilateral hip arthritis orthopedic surgery on consult Photo / Body Diagrams - Uploaded Photos Uploaded Photos:
[2017-03-27] MEDS ORDERED: D5W 1,000 ML PRIMARY IV SCH (13:30)
[2017-03-27 20:24] LABS: CALCIUM 8.1 mg/dL (8.7-10.7); SERUM ALBUMIN 3.2 g/dL (3.5-4.8)
[2017-03-27] MEDS: POTASSIUM CHLORIDE 20 MEQ TAB PO SCH ×3 (22:23→23:36)
[2017-03-27] MEDS: NYSTATIN 15 GM POWDER TOPICAL PRN (22:37)
[2017-03-28 06:54] LABS: BASOPHILS # (AUTO) 0.07 10*3/UL; EOSINOPHILS # (AUTO) 0.18 10*3/UL; EOSINOPHILS % (AUTO) 2.6 % (0-8); HEMOGLOBIN 12.8 g/dL (14.0-18.0); MEAN CORPUSCULAR HEMOGLOBIN 28.4 PG (27-31); MEAN CORPUSCULAR HGB CONC 32.8 g/dL (33-37); MEAN CORPUSCULAR VOLUME 86.7 FL (80-90); MEAN PLATELET VOLUME 10.2 FL (7.4-12.2); MONOCYTES # (AUTO) 0.55 10*3/UL (0.3-0.8); MONOCYTES % (AUTO) 7.8 % (5-15); NEUTROPHILS # (AUTO) 4.52 10*3/UL; NEUTROPHILS % (AUTO) 64.1 % (50-80)
[2017-03-28 07:05] LABS: PLATELET MORPHOLOGY COMMENT NORMAL MORPHOLOGY (NORM); RBC MORPHOLOGY COMMENT NORMAL MORPHOLOGY (NORM); WBC MORPHOLOGY COMMENT NORMAL MORPHOLOGY (NORM)
[2017-03-28 07:09] LABS: BUN/CREATININE RATIO 17.77 (6-20); CALCIUM 8.7 mg/dL (8.7-10.7); SERUM ALBUMIN 3.2 g/dL (3.5-4.8)
[2017-03-28] MEDS: POTASSIUM CHLORIDE 20 MEQ TAB PO SCH ×2 (09:21→17:14)
[2017-03-28] MEDS: TAMSULOSIN 0.4 MG CAPSULE PO SCH (09:21)
[2017-03-28] MEDS: AZITHROMYCIN 250 MG TABLET PO SCH (09:21)
[2017-03-28] MEDS: Linaclotide Cap 290 MCG CAPSULE PO SCH (09:21)
[2017-03-28] MEDS: ENOXAPARIN SODIUM 40 MG/0.4 ML SYRINGE SUBCUT SCH (09:22)
[2017-03-28] MEDS: CEFUROXIME 500 MG TABLET PO SCH ×2 (09:22→20:09)
[2017-03-28] MEDS: PANTOPRAZOLE 40 MG TABLET PO SCH (09:22)
[2017-03-28] MEDS: Multivitamin Tab 1 TAB PO SCH (09:22)
[2017-03-28] MEDS: DOCUSATE 100 MG CAPSULE PO SCH ×2 (10:34→20:09)
--- NOTE | 2017-03-28 12:25 | PDOC(PROG) ---
Interval History: No events overnight no complaints I discussed the case with the nurses he seems not to want to do anything for himself and the nurses say he asks for everything and he usually is and wants to have bowel movements and his bed and not get up and go to the bathroom Objective : Data - Labs CBC and BMP: 03/28/17 06:46 03/28/17 06:46 Labs - Last 24 Hours: Laboratory Results 03/27/17 03/28/17 Range/Units 20:06 06:46 WBC 7.05 (4.8-10.8) 10^3/uL RBC 4.50 L (4.70-6.10) 10^6/uL Hgb 12.8 L (14.0-18.0) g/dL Hct 39.0 L (42.0-52.0) % MCV 86.7 (80-90) FL MCH 28.4 (27-31) PG MCHC 32.8 L (33-37) g/dL RDW Std Deviation 50.6 H (39-50) fL RDW Coeff of Jyoti 16.0 H (11.5-14.5) % Plt Count 236 (140-350) 10*3/uL MPV 10.2 (7.4-12.2) FL Immature Gran % (Auto) 0.4 (0-5) % Neut % (Auto) 64.1 (50-80) % Lymph % (Auto) 24.1 (10-50) % Hendricks % (Auto) 7.8 (5-15) % Eos % (Auto) 2.6 (0-8) % Baso % (Auto) 1.0 (0-1) % Immature Gran # (Auto) 0.03 10*3/UL Neut # (Auto) 4.52 10*3/UL Lymph # (Auto) 1.70 10*3/uL Hendricks # (Auto) 0.55 (0.3-0.8) 10*3/UL Eos # (Auto) 0.18 10*3/UL Baso # (Auto) 0.07 10*3/UL WBC Morphology Comment Normal morphology (NORM) Plt Morphology Comment Normal morphology (NORM) RBC Morph Comment Normal morphology (NORM) Sodium 143 145 (135-145) meq/L Potassium 3.7 L 4.3 (3.8-5.2) meq/L Chloride 113 H 113 H (98-112) meq/L Carbon Dioxide 23 23 (23-33) meq/L Anion Gap 7 9 (5-20) BUN 19 16 (7-22) mg/dL Creatinine 1.0 0.9 (0.70-1.50) mg/dL Estimated GFR (>60 ml/min/1.73m(2)) BUN/Creatinine Ratio 19.00 17.77 (6-20) Glucose 117 H 98 (78-110) mg/dL Calculated Osmolality 298.0 H 300.0 H (267-292) mOsm/kg Calcium 8.1 L 8.7 (8.7-10.7) mg/dL Total Bilirubin 0.4 0.6 (0.3-1.2) mg/dL AST 20 L 17 L (21-57) IU/L ALT 35 34 (21-72) IU/L Alkaline Phosphatase 73 83 (38-126) IU/L Total Protein 6.7 6.6 (6.1-8.0) g/dL Albumin 3.2 L 3.2 L (3.5-4.8) g/dL Globulin 3.5 3.4 (2.50-4.10) g/dL Albumin/Globulin Ratio 0.90 L 0.90 L (1.3-2.0) mg/g Objective : Exam - General General Appearance: Cooperative - Respiratory Respiratory Exam: Clear to Auscultation - Bilaterally, Breathing Non Labored, Normal To Percussion, Normal to Percussion and Palpation - Cardiovascular Cardiovascular Exam: RRR, No Murmur, No Clicks, No Gallops - GI/Abdominal GI/Abdominal Exam: Normal Bowel Sounds, Non Tender, Non Distended, Soft - Extremities Extremities Exam: No Clubbing Present, No Edema Present, No Cyanosis Present Assessment and Plan - Patient Problems (1) Pneumonia Current Visit: Yes Status: Acute Comment: Resolved continue 1 more day of by mouth antibiotics (2) Weakness generalized Current Visit: Yes Status: Acute Comment: Patient will like to go to swing bed for further rehabilitation. Considering his weakness and poor stamina (3) Hypernatremia Current Visit: Yes Status: Acute Comment: Improved patient was given D5W for about 4 hours sodium down to 143 today back up to 145 which is still within normal range check labs in the morning Photo / Body Diagrams - Uploaded Photos Uploaded Photos:
[2017-03-28] MEDS: D5W 1,000 ML PRIMARY IV SCH ×2 (16:20→20:39)
[2017-03-28] MEDS: NYSTATIN 15 GM POWDER TOPICAL PRN (20:08)
[2017-03-28 20:21] LABS: CALCIUM 8.4 mg/dL (8.7-10.7); SERUM ALBUMIN 3.5 g/dL (3.5-4.8)
[2017-03-29] MEDS: POTASSIUM CHLORIDE 20 MEQ TAB PO SCH (06:49)
--- NOTE | 2017-03-29 07:26 | PT.PROG ---
Progress Note Progress Note: S: Pt. states he is doing ok today. He agrees to work with PT. C/o fatigue with walking. O: Treatment consisted of functional activities: transporting patient down to the clinic where he performed UBE x 3/3, UE exercises in all planes with wall pulleys, bicep curls with yellow theraband, overhead press with 4 lb theraball, sit to stands x 5, and ambulated 10 feet x 1, 20 feet x 2 with use of FWW and mod assist x 2. He also received moist heat to his B hips in attempts loosen his hips ups and decrease his pain. Pt. was then taken back up to his room and placed in his recliner. Call button within reach and nursing notified. Also swapped out his SW for a FWW as patient tolerated this much better. A: Pt. was more cooperative with exercises today. He continues to require constant v.c for safety, especially with his spontaneity. He also demonstrated smoother ambulation today with use of FWW. When standing he does present with FWW and flexed knees. Unable to stand upright and erect. P: Continue per POC to increase strength and activity tolerance. Breanna Sharma, FAUC[employer] POLISHER
[2017-03-29] MEDS ORDERED: LIDOCAINE HCL 2 % 10 ML JELLY URO-JECT TOPICAL ONE (07:39)
[2017-03-29] MEDS ORDERED: BUPIVACAINE 0.25% W/ EPI - 10 ML VIAL ONE (07:39)
[2017-03-29] MEDS ORDERED: Opium-Belladonna 30-16.2mg 1 EACH SUPP.RECT RECTAL ONE (07:39)
--- NOTE | 2017-03-29 08:17 | PT.PROG ---
Progress Note Progress Note: 03/26/2017 4:30-5:00 S:pt. is feeling tired from this mornings session. He states he wants to work, and will, but he is tires O: pt. performed sit to stand 10x and seated balance/mobility. he also ambulated a total of 40 ft. over 3 sets. A: pt. was complaining of being tired. he was moving slow and required longer rest than normal. He also stopped quicker than normal. He is likely both physically tired, but more so mentally feels he should be tired. it will be important to make sure his morning sessions are good. P: continue to improve functional activity.
[2017-03-29] MEDS: TAMSULOSIN 0.4 MG CAPSULE PO SCH (09:53)
[2017-03-29] MEDS: AZITHROMYCIN 250 MG TABLET PO SCH (09:53)
[2017-03-29] MEDS: PANTOPRAZOLE 40 MG TABLET PO SCH (09:53)
[2017-03-29] MEDS: Multivitamin Tab 1 TAB PO SCH (09:53)
[2017-03-29] MEDS: DOCUSATE 100 MG CAPSULE PO SCH ×2 (09:54→20:05)
[2017-03-29] MEDS: Linaclotide Cap 290 MCG CAPSULE PO SCH (09:54)
[2017-03-29] MEDS: ENOXAPARIN SODIUM 40 MG/0.4 ML SYRINGE SUBCUT SCH (09:54)
[2017-03-29] MEDS: CEFUROXIME 500 MG TABLET PO SCH ×2 (09:54→20:04)
--- NOTE | 2017-03-29 09:55 | PDOC(PROG) ---
Interval History: Doing well has no complaints no shortness of breath no chest pain no nausea no vomiting Objective : Data - Labs CBC and BMP: 03/28/17 06:46 03/28/17 20:10 Labs - Last 24 Hours: Laboratory Results 03/28/17 Range/Units 20:10 Sodium 143 (135-145) meq/L Potassium 4.2 (3.8-5.2) meq/L Chloride 113 H (98-112) meq/L Carbon Dioxide 21 L (23-33) meq/L Anion Gap 9 (5-20) BUN 17 (7-22) mg/dL Creatinine 1.0 (0.70-1.50) mg/dL Estimated GFR (>60 ml/min/1.73m(2)) BUN/Creatinine Ratio 17.00 (6-20) Glucose 120 H (78-110) mg/dL Calculated Osmolality 298.0 H (267-292) mOsm/kg Calcium 8.4 L (8.7-10.7) mg/dL Total Bilirubin 0.5 (0.3-1.2) mg/dL AST 22 (21-57) IU/L ALT 39 (21-72) IU/L Alkaline Phosphatase 85 (38-126) IU/L Total Protein 7.2 (6.1-8.0) g/dL Albumin 3.5 (3.5-4.8) g/dL Globulin 3.8 (2.50-4.10) g/dL Albumin/Globulin Ratio 0.90 L (1.3-2.0) mg/g Objective : Exam - General General Appearance: Cooperative - Head Head Exam: Normal Inspection, Normocephalic, Atraumatic - Respiratory Respiratory Exam: Clear to Auscultation - Bilaterally, Breathing Non Labored, Normal To Percussion, Normal to Percussion and Palpation - Cardiovascular Cardiovascular Exam: RRR, No Murmur, No Clicks, No Gallops - GI/Abdominal GI/Abdominal Exam: Non Tender, Non Distended, Soft - Extremities Extremities Exam: No Clubbing Present, No Edema Present, No Cyanosis Present - Neurological Neurological Exam: Alert, Oriented x 3, CN II-XII Intact, No Facial Droop, Speech Intact / Clear - Psychiatric Psychiatric Exam: Normal Affect, Normal Mood Assessment and Plan - Patient Problems (1) Pneumonia Current Visit: Yes Status: Acute Comment: Resolved today is his last day of antibiotics (2) Weakness generalized Current Visit: Yes Status: Acute Comment: Continue PTOT discuss case with the social media director she will discuss with physical therapist on the recommendation on swing bed versus fdc patient seems to be very weak and not motivated to do any activity even as much as going to the bathroom for bowel movements this information is from the nursing and [employer] PROCESSOR's will await physical therapies and occupational therapies decision (3) Hypernatremia Current Visit: Yes Status: Acute Comment: Improved to 143 last night D5W was stopped repeat labs this morning (4) Hypokalemia Current Visit: Yes Status: Acute Comment: Replaced and now normal Photo / Body Diagrams - Uploaded Photos Uploaded Photos:
[2017-03-29] MEDS: D5W 1,000 ML PRIMARY IV SCH (10:03)
[2017-03-29 10:12] LABS: BUN/CREATININE RATIO 17.77 (6-20); CALCIUM 8.6 mg/dL (8.7-10.7); SERUM ALBUMIN 3.6 g/dL (3.5-4.8)
--- NOTE | 2017-03-29 10:33 | DCSUMMARY ---
Hospitalization Summary Hospital Course: Final Discharge Diagnosis: Current Visit Problems Problem Status Priority Diagnosed Code DVT prophylaxis Acute [id number] Fall at home Acute W19.XXXA GERD (gastroesophageal reflux disease) Acute K21.9 Hypernatremia Acute E87.0 Hypokalemia Acute E87.6 Near syncope Acute R55 Osteoarthritis Acute M19.90 Pneumonia Acute J18.9 Urinary retention Acute R33.9 Weakness generalized Acute Diagnostic Data, Laboratory Data, and Procedures of Signifigance: Laboratory Results 03/23/17 03/23/17 03/23/17 Range/Units 09:31 09:41 11:06 WBC 10.98 H (4.8-10.8) 10^3/uL RBC 4.91 (4.70-6.10) 10^6/uL Hgb 13.7 L (14.0-18.0) g/dL Hct 42.5 (42.0-52.0) % MCV 86.6 (80-90) FL MCH 27.9 (27-31) PG MCHC 32.2 L (33-37) g/dL RDW Std Deviation 51.1 H (39-50) fL RDW Coeff of Jyoti 16.5 H (11.5-14.5) % Plt Count 279 (140-350) 10*3/uL MPV 10.1 (7.4-12.2) FL Immature Gran % (Auto) 0.2 (0-5) % Neut % (Auto) 80.3 H (50-80) % Lymph % (Auto) 12.6 (10-50) % Loup % (Auto) 5.3 (5-15) % Eos % (Auto) 1.1 (0-8) % Baso % (Auto) 0.5 (0-1) % Immature Gran # (Auto) 0.02 10*3/UL Neut # (Auto) 8.83 10*3/UL Lymph # (Auto) 1.38 10*3/uL Loup # (Auto) 0.58 (0.3-0.8) 10*3/UL Eos # (Auto) 0.12 10*3/UL Baso # (Auto) 0.05 10*3/UL WBC Morphology Comment Normal morphology (NORM) Plt Morphology Comment Normal morphology (NORM) RBC Morph Comment Normal morphology (NORM) VBG pH 7.46 H (7.32-7.42) VBG pCO2 31 L (45-55) mmHg VBG HCO3 22 (22-26) mmol/L VBG Base Excess -2 (-2-2) MMOL/L Sodium 145 (135-145) meq/L Potassium 4.6 (3.8-5.2) meq/L Chloride 109 (98-112) meq/L Carbon Dioxide 22 L (23-33) meq/L Anion Gap 14 (5-20) BUN 27 H (7-22) mg/dL Creatinine 1.1 (0.70-1.50) mg/dL Estimated GFR > 60 (>60 ml/min/1.73m(2)) BUN/Creatinine Ratio 24.54 H (6-20) Glucose 139 H (78-110) mg/dL Calculated Osmolality 306.0 H (267-292) mOsm/kg Lactic Acid 2.2 H (0.70-2.10) MMOL/L Calcium 8.9 (8.7-10.7) mg/dL Magnesium 2.2 (1.6-2.4) mg/dL Total Bilirubin 0.8 (0.3-1.2) mg/dL AST 48 (21-57) IU/L ALT 27 (21-72) IU/L Alkaline Phosphatase 101 (38-126) IU/L Troponin I 0.000 (< 0.040) ng/mL NT-Pro-B Natriuret Pep 206 H (0-125) PG/ML Total Protein 8.1 H (6.1-8.0) g/dL Albumin 4.0 (3.5-4.8) g/dL Globulin 4.1 (2.50-4.10) g/dL Albumin/Globulin Ratio 0.90 L (1.3-2.0) mg/g Ur Collection Type Urine Color Urine Clarity (CLEAR) Urine pH (5.0-8.5) Ur Specific [place] (1.005-1.030) U Specif Grav (Refrac) Urine Protein (NEG) mg/dl Urine Glucose (UA) (NEG) mg/dL Urine Ketones (NEG) Urine Occult Blood (NEG) Urine Nitrate (NEG) Urine Bilirubin (NEG) Urine Urobilinogen (0.2) EU/dL Ur Leukocyte Esterase (NEG) Urine RBC (NONE) /hpf Urine WBC (NONE) Ur Squamous Epith Cells (NONE) Ur Renal Epithelial Cell (NONE) Urine Crystals Urine Bacteria (NONE) Urine Casts (NONE) Urine Mucus (NONE) Urine Trichomonas (NONE) Urine Yeast (NONE) Ur Culture Indicated? Urine Opiates Screen (NEG) Ur Buprenorphine (NEG) Ur Oxycodone Screen (NEG) Urine Methadone Screen (NEG) Ur Propoxyphene Screen (NEG) Barbiturate Screen (NEG) U Tricyclic Antidepress (NEG) Phencyclidine Screen (NEG) Amphetamines Screen (NEG) U Methamphetamines Scrn (NEG) Benzodiazepines Screen (NEG) Cocaine Screen (NEG) U Marijuana (THC) Screen (NEG) 03/23/17 03/23/17 03/24/17 Range/Units 12:27 18:00 05:55 WBC 7.60 (4.8-10.8) 10^3/uL RBC 4.35 L (4.70-6.10) 10^6/uL Hgb 12.4 L (14.0-18.0) g/dL Hct 38.2 L (42.0-52.0) % MCV 87.8 (80-90) FL MCH 28.5 (27-31) PG MCHC 32.5 L (33-37) g/dL RDW Std Deviation 51.3 H (39-50) fL RDW Coeff of Jyoti 16.3 H (11.5-14.5) % Plt Count 223 (140-350) 10*3/uL MPV 10.0 (7.4-12.2) FL Immature Gran % (Auto) 0.4 (0-5) % Neut % (Auto) 64.5 (50-80) % Lymph % (Auto) 24.1 (10-50) % Loup % (Auto) 7.4 (5-15) % Eos % (Auto) 2.5 (0-8) % Baso % (Auto) 1.1 H (0-1) % Immature Gran # (Auto) 0.03 10*3/UL Neut # (Auto) 4.91 10*3/UL Lymph # (Auto) 1.83 10*3/uL Loup # (Auto) 0.56 (0.3-0.8) 10*3/UL Eos # (Auto) 0.19 10*3/UL Baso # (Auto) 0.08 10*3/UL WBC Morphology Comment Normal morphology (NORM) Plt Morphology Comment Normal morphology (NORM) RBC Morph Comment Normal morphology (NORM) VBG pH (7.32-7.42) VBG pCO2 (45-55) mmHg VBG HCO3 (22-26) mmol/L VBG Base Excess (-2-2) MMOL/L Sodium 146.0 H (135-145) meq/L Potassium 4.4 (3.8-5.2) meq/L Chloride 114.0 H (98-112) meq/L Carbon Dioxide 23.0 (23-33) meq/L Anion Gap 9.0 (5-20) BUN 22.0 (7-22) mg/dL Creatinine 1.0 (0.70-1.50) mg/dL Estimated GFR Guard Entrance Registrar (>60 ml/min/1.73m(2)) BUN/Creatinine Ratio 22.00 H (6-20) Glucose 100.0 (78-110) mg/dL Calculated Osmolality 304.50 H (267-292) mOsm/kg Lactic Acid 0.6 L (0.70-2.10) MMOL/L Calcium 8.1 L (8.7-10.7) mg/dL Magnesium (1.6-2.4) mg/dL Total Bilirubin 0.5 (0.3-1.2) mg/dL AST 19.0 L (21-57) IU/L ALT 35.0 (21-72) IU/L Alkaline Phosphatase 81.0 (38-126) IU/L Troponin I (< 0.040) ng/mL NT-Pro-B Natriuret Pep (0-125) PG/ML Total Protein 6.7 (6.1-8.0) g/dL Albumin 3.1 L (3.5-4.8) g/dL Globulin 3.6 (2.50-4.10) g/dL Albumin/Globulin Ratio 0.80 L (1.3-2.0) mg/g Ur Collection Type Cath specimen Urine Color Yellow Urine Clarity Clear (CLEAR) Urine pH 5.5 (5.0-8.5) Ur Specific [place] 1.015 (1.005-1.030) U Specif Grav (Refrac) 1.015 Urine Protein Negative (NEG) mg/dl Urine Glucose (UA) Negative (NEG) mg/dL Urine Ketones Negative (NEG) Urine Occult Blood Negative (NEG) Urine Nitrate Positive H (NEG) Urine Bilirubin Negative (NEG) Urine Urobilinogen 1.0 (0.2) EU/dL Ur Leukocyte Esterase Negative (NEG) Urine RBC None (NONE) /hpf Urine WBC None (NONE) Ur Squamous Epith Cells Few (NONE) Ur Renal Epithelial Cell None (NONE) Urine Crystals None Urine Bacteria Few (NONE) Urine Casts None (NONE) Urine Mucus Few (NONE) Urine Trichomonas None (NONE) Urine Yeast None (NONE) Ur Culture Indicated? Culture not set Urine Opiates Screen Negative (NEG) Ur Buprenorphine Negative (NEG) Ur Oxycodone Screen Negative (NEG) Urine Methadone Screen Negative (NEG) Ur Propoxyphene Screen Negative (NEG) Barbiturate Screen Negative (NEG) U Tricyclic Antidepress Negative (NEG) Phencyclidine Screen Negative (NEG) Amphetamines Screen Negative (NEG) U Methamphetamines Scrn Negative (NEG) Benzodiazepines Screen Negative (NEG) Cocaine Screen Negative (NEG) U Marijuana (THC) Screen Negative (NEG) 03/27/17 03/28/17 03/28/17 Range/Units 20:06 06:46 20:10 WBC 7.05 (4.8-10.8) 10^3/uL RBC 4.50 L (4.70-6.10) 10^6/uL Hgb 12.8 L (14.0-18.0) g/dL Hct 39.0 L (42.0-52.0) % MCV 86.7 (80-90) FL MCH 28.4 (27-31) PG MCHC 32.8 L (33-37) g/dL RDW Std Deviation 50.6 H (39-50) fL RDW Coeff of Jyoti 16.0 H (11.5-14.5) % Plt Count 236 (140-350) 10*3/uL MPV 10.2 (7.4-12.2) FL Immature Gran % (Auto) 0.4 (0-5) % Neut % (Auto) 64.1 (50-80) % Lymph % (Auto) 24.1 (10-50) % Loup % (Auto) 7.8 (5-15) % Eos % (Auto) 2.6 (0-8) % Baso % (Auto) 1.0 (0-1) % Immature Gran # (Auto) 0.03 10*3/UL Neut # (Auto) 4.52 10*3/UL Lymph # (Auto) 1.70 10*3/uL Loup # (Auto) 0.55 (0.3-0.8) 10*3/UL Eos # (Auto) 0.18 10*3/UL Baso # (Auto) 0.07 10*3/UL WBC Morphology Comment Normal morphology (NORM) Plt Morphology Comment Normal morphology (NORM) RBC Morph Comment Normal morphology (NORM) VBG pH (7.32-7.42) VBG pCO2 (45-55) mmHg VBG HCO3 (22-26) mmol/L VBG Base Excess (-2-2) MMOL/L Sodium 143 145 143 (135-145) meq/L Potassium 3.7 L 4.3 4.2 (3.8-5.2) meq/L Chloride 113 H 113 H 113 H (98-112) meq/L Carbon Dioxide 23 23 21 L (23-33) meq/L Anion Gap 7 9 9 (5-20) BUN 19 16 17 (7-22) mg/dL Creatinine 1.0 0.9 1.0 (0.70-1.50) mg/dL Estimated GFR (>60 ml/min/1.73m(2)) BUN/Creatinine Ratio 19.00 17.77 17.00 (6-20) Glucose 117 H 98 120 H (78-110) mg/dL Calculated Osmolality 298.0 H 300.0 H 298.0 H (267-292) mOsm/kg Lactic Acid (0.70-2.10) MMOL/L Calcium 8.1 L 8.7 8.4 L (8.7-10.7) mg/dL Magnesium (1.6-2.4) mg/dL Total Bilirubin 0.4 0.6 0.5 (0.3-1.2) mg/dL AST 20 L 17 L 22 (21-57) IU/L ALT 35 34 39 (21-72) IU/L Alkaline Phosphatase 73 83 85 (38-126) IU/L Troponin I (< 0.040) ng/mL NT-Pro-B Natriuret Pep (0-125) PG/ML Total Protein 6.7 6.6 7.2 (6.1-8.0) g/dL Albumin 3.2 L 3.2 L 3.5 (3.5-4.8) g/dL Globulin 3.5 3.4 3.8 (2.50-4.10) g/dL Albumin/Globulin Ratio 0.90 L 0.90 L 0.90 L (1.3-2.0) mg/g Ur Collection Type Urine Color Urine Clarity (CLEAR) Urine pH (5.0-8.5) Ur Specific [place] (1.005-1.030) U Specif Grav (Refrac) Urine Protein (NEG) mg/dl Urine Glucose (UA) (NEG) mg/dL Urine Ketones (NEG) Urine Occult Blood (NEG) Urine Nitrate (NEG) Urine Bilirubin (NEG) Urine Urobilinogen (0.2) EU/dL Ur Leukocyte Esterase (NEG) Urine RBC (NONE) /hpf Urine WBC (NONE) Ur Squamous Epith Cells (NONE) Ur Renal Epithelial Cell (NONE) Urine Crystals Urine Bacteria (NONE) Urine Casts (NONE) Urine Mucus (NONE) Urine Trichomonas (NONE) Urine Yeast (NONE) Ur Culture Indicated? Urine Opiates Screen (NEG) Ur Buprenorphine (NEG) Ur Oxycodone Screen (NEG) Urine Methadone Screen (NEG) Ur Propoxyphene Screen (NEG) Barbiturate Screen (NEG) U Tricyclic Antidepress (NEG) Phencyclidine Screen (NEG) Amphetamines Screen (NEG) U Methamphetamines Scrn (NEG) Benzodiazepines Screen (NEG) Cocaine Screen (NEG) U Marijuana (THC) Screen (NEG) 03/29/17 Range/Units 09:44 WBC (4.8-10.8) 10^3/uL RBC (4.70-6.10) 10^6/uL Hgb (14.0-18.0) g/dL Hct (42.0-52.0) % MCV (80-90) FL MCH (27-31) PG MCHC (33-37) g/dL RDW Std Deviation (39-50) fL RDW Coeff of Jyoti (11.5-14.5) % Plt Count (140-350) 10*3/uL MPV (7.4-12.2) FL Immature Gran % (Auto) (0-5) % Neut % (Auto) (50-80) % Lymph % (Auto) (10-50) % Loup % (Auto) (5-15) % Eos % (Auto) (0-8) % Baso % (Auto) (0-1) % Immature Gran # (Auto) 10*3/UL Neut # (Auto) 10*3/UL Lymph # (Auto) 10*3/uL Loup # (Auto) (0.3-0.8) 10*3/UL Eos # (Auto) 10*3/UL Baso # (Auto) 10*3/UL WBC Morphology Comment (NORM) Plt Morphology Comment (NORM) RBC Morph Comment (NORM) VBG pH (7.32-7.42) VBG pCO2 (45-55) mmHg VBG HCO3 (22-26) mmol/L VBG Base Excess (-2-2) MMOL/L Sodium 141 (135-145) meq/L Potassium 5.0 (3.8-5.2) meq/L Chloride 111 (98-112) meq/L Carbon Dioxide 19 L (23-33) meq/L Anion Gap 11 (5-20) BUN 16 (7-22) mg/dL Creatinine 0.9 (0.70-1.50) mg/dL Estimated GFR (>60 ml/min/1.73m(2)) BUN/Creatinine Ratio 17.77 (6-20) Glucose 142 H (78-110) mg/dL Calculated Osmolality 294.0 H (267-292) mOsm/kg Lactic Acid (0.70-2.10) MMOL/L Calcium 8.6 L (8.7-10.7) mg/dL Magnesium (1.6-2.4) mg/dL Total Bilirubin 0.6 (0.3-1.2) mg/dL AST 31 (21-57) IU/L ALT 39 (21-72) IU/L Alkaline Phosphatase 74 (38-126) IU/L Troponin I (< 0.040) ng/mL NT-Pro-B Natriuret Pep (0-125) PG/ML Total Protein 7.4 (6.1-8.0) g/dL Albumin 3.6 (3.5-4.8) g/dL Globulin 3.8 (2.50-4.10) g/dL Albumin/Globulin Ratio 0.90 L (1.3-2.0) mg/g Ur Collection Type Urine Color Urine Clarity (CLEAR) Urine pH (5.0-8.5) Ur Specific [place] (1.005-1.030) U Specif Grav (Refrac) Urine Protein (NEG) mg/dl Urine Glucose (UA) (NEG) mg/dL Urine Ketones (NEG) Urine Occult Blood (NEG) Urine Nitrate (NEG) Urine Bilirubin (NEG) Urine Urobilinogen (0.2) EU/dL Ur Leukocyte Esterase (NEG) Urine RBC (NONE) /hpf Urine WBC (NONE) Ur Squamous Epith Cells (NONE) Ur Renal Epithelial Cell (NONE) Urine Crystals Urine Bacteria (NONE) Urine Casts (NONE) Urine Mucus (NONE) Urine Trichomonas (NONE) Urine Yeast (NONE) Ur Culture Indicated? Urine Opiates Screen (NEG) Ur Buprenorphine (NEG) Ur Oxycodone Screen (NEG) Urine Methadone Screen (NEG) Ur Propoxyphene Screen (NEG) Barbiturate Screen (NEG) U Tricyclic Antidepress (NEG) Phencyclidine Screen (NEG) Amphetamines Screen (NEG) U Methamphetamines Scrn (NEG) Benzodiazepines Screen (NEG) Cocaine Screen (NEG) U Marijuana (THC) Screen (NEG) History and Physical pertinent to Admission: Course of Hospitalization: This very nice 71-year-old gentleman with past medical history of osteoarthritis , GERD and obesity was brought in by his because of weakness over the last 3 or 4 days more than usual and she was unable to take care of him at home any longer also evaluation in ER showed possibly early pneumonia and the patient was given antibiotics IV initially and then finished his course by mouth with resolution of all his symptoms. He also had some hypernatremia was put on D5W and it was corrected from 145-143-141. With no symptoms. Also his potassium was low and this was replaced and is now within normal limits. The only new medication that was added was Flomax he did have some urinary retention and a Smith was inserted then it was taken out and he is making that good urine with no retention. Patient appears overall 00 week with very little motivation to do any activity according to the nurses and the PLASMA CUTTING MACHINE OPERATOR's he does not even want to get up out of bed to go have a bowel movement and uses a bedpan and social work msw talk with the patient and he is willing to do more physical therapy at the [facility]. He also had a consultation by Dr. Mcarthur orthopedic surgeon which diagnosed him with bilateral hip osteoarthritis and has says that if he loses a a lot of weight and his BMI drops could be a candidate for hip replacement but not at present time. Filemon was discussed with nursing and social workers Past Medical History Medical History: 1. GERD. 2. Admission in 2013 at that time he had perforated peptic ulcer needed surgery then he developed acute respiratory failure and was transferred to [facility] post surgery. 3. Osteoarthritis. 4. On Oxygen at night Surgical History: 1. Surgery for perforated peptic ulcer 2013. 2. Cataract. 3. Tonsillectomy Family History: Reviewed an Not Pertinent Past Social History: Used to smoke, rarely drinks. No drugs. Lives with his . Tobacco Use: Former Smoker Substance Use Type: None Alcohol Use: Rarely On the date of discharge, the patient was examined: Gen.: [No acute distress, alert, nontoxic] Heart: [Regular rate and rhythm, no murmurs, clicks, gallops, or rubs] Lungs: [Clear to auscultation bilaterally, breathing is nonlabored] Abdomen/GI: [Normal tones on auscultation, soft, nontender, nondistended] Musculoskeletal/extremities: [No clubbing, cyanosis, or edema] Vitals reviewed and are listed below Vital Signs (24 hrs) Temp Pulse Resp BP BP Pulse Ox 03/29/17 06:48 98.3 F 62 16 138/59 95 03/29/17 05:26 98 03/29/17 05:00 97.8 F 73 20 165/64 98 03/29/17 01:46 97.0 F 72 16 161/68 98 03/28/17 20:42 97.6 F 72 20 162/74 97 03/28/17 16:34 97.6 F 68 19 145/74 97 03/28/17 11:16 97.5 F 74 16 155/62 96 Assessment and Plan: 1. As per discharge assessments above 2. Disposition: 3. Condition on discharge, stable and improved. 4. Diet: regular diet 5. Activities: resume normal activities 6. Follow-Up: 1. [PCP] 2. 7. Medications at the Time of Discharge: Home Medications Medication Instructions Recorded Confirmed Type Docusate Sodium [Doc-Q-Lace] 1 cap PO BID cap 08/18/14 03/23/17 History Melatonin 2 tab PO HS PRN tab 08/18/14 03/23/17 History Multivitamin [Hwf-Ayirky-Unrfc] 1 tab PO QD tab 08/18/14 03/23/17 History Thiamine Mononitrate [Vitamin B-1] 1 tab PO QD #90 tab 12/06/14 03/23/17 Clinic Furosemide 1 tab PO QAM #90 tab 11/25/16 03/23/17 Clinic Linaclotide [Linzess] 1 cell PO DAILY #90 cap 11/25/16 03/23/17 Clinic Pantoprazole Sodium 1 tab PO QD #90 tab 11/25/16 03/23/17 Clinic Acetaminophen/Diphenhydramine 2 each PO BEDTIME 03/23/17 03/23/17 History [Tylenol Pm Ex-Strength Caplet] Tamsulosin HCl [Flomax] 0.4 mg PO DAILY cap 03/29/17 Rx 8. Time, care, counseling and coordination of care for this discharge is greater than 30 minutes. Exam - Vitals Vital Signs: Vital Signs Temperature 98.3 F Temperature Source Oral Pulse Rate [Pulse Oximeter] 62 Pulse Rate 64 Respiratory Rate 16 Blood Pressure [Left Radial 161/68 Artery] Blood Pressure [Right Radial 138/59 Artery] Blood Pressure [Right Arm] 132/60 Blood Pressure 146/85 Pulse Ox 95 Oxygen Flow Rate 2 Oxygen Delivery Method Room Air Height 6 ft Weight 125.6 kg Patient Problems - Patient Problem List (1) Pneumonia Current Visit: Yes Status: Acute (2) Weakness generalized Current Visit: Yes Status: Acute (3) Hypernatremia Current Visit: Yes Status: Acute (4) Hypokalemia Current Visit: Yes Status: Acute
--- NOTE | 2017-03-29 11:34 | PT AM DAY ---
Diagnosis : Weakness AM - Physical Therapy S: The patient states he does not want to do anything today. He states he is very tired and does not feel good. O: The patient performed a pivot transfer to the wheelchair with max assist x2. He was then wheeled down to therapy where he performed upper body ergometer x10 minutes with one minute of cycling followed by one minute of rest. He then performed hand strengthening exercises, fine motor exercises, and wall pulleys. He was then wheeled back up to his room where he transferred from sit to stand with max assist x2. He then ambulated to the bathroom in order to use the restroom. The patient then ambulated approximately 5 more feet to the wheelchair with max assist x2 and then performed a pivot transfer back into bed with max assist x2. A: The patient is a huge risk for falling. The patient does not put forth any effort and he is extremely weak and deconditioned. The patient cannot bend his left knee at all; in fact it is very hard for the therapist to put the patient's knee into flexion. The patient does not stand up tall and ambulation is very difficult at this point. P: Continue seeing patient BID during the week and one time per day over the weekend for transfers, ambulation, and range of motion/strengthening exercises. ASMITAD
--- NOTE | 2017-03-29 12:17 | PT.PROG ---
Progress Note Progress Note: S: pt. states he is tired from working with the nurses. O: pt. was instructed to dress himself as best he could (mod assist) pt. performed 50ft ambulation over 3 sets A: pt.does not seem to be improving mentally and does not tolerate therapy well through the day. Recommend sending pt. to [facility] where he can be looked after and receive less intensive therapy. limiting factor for this pt. continues to be his lack of motivation to improve. P: try to improve his functional activities as best as possible
[2017-03-29] MEDS: NYSTATIN 15 GM POWDER TOPICAL PRN (20:05)
[2017-03-30] MEDS: Linaclotide Cap 290 MCG CAPSULE PO SCH (08:30)
[2017-03-30] MEDS: DOCUSATE 100 MG CAPSULE PO SCH ×2 (08:31→20:39)
[2017-03-30] MEDS: ENOXAPARIN SODIUM 40 MG/0.4 ML SYRINGE SUBCUT SCH (08:35)
[2017-03-30] MEDS: TAMSULOSIN 0.4 MG CAPSULE PO SCH (08:35)
[2017-03-30] MEDS: Multivitamin Tab 1 TAB PO SCH (08:35)
[2017-03-30] MEDS: PANTOPRAZOLE 40 MG TABLET PO SCH (08:35)
--- NOTE | 2017-03-30 10:40 | PT.PROG ---
Progress Note Progress Note: 03/29/2017 3:00-3:30 S: subject reports he feels the same as he has before every other session O: pt. performed sit to stand 10x over 4 sets. pt. performed UE exercises during those rests A: pt. seemed more tired and weaker than usual, or less motivated. He continues to do the bare minimum during therapy. P: continue to attempt to improve his functional activity.
--- NOTE | 2017-03-30 10:44 | PT.PROG ---
Progress Note Progress Note: 03/30/2017 9:30-10:00 S: pt reports feeling ready for therapy this morning. O: pt. ambulated 70 ft over 3 sets w/ 10 sit tostands over the course of his session. pt. reported he needed to go to the bathroom, so he was brought to a toilet where he then urinated on himself. pt. was cleaned up, given new clothes , and returned to his room. A: pt. started off today giving good effort during his walking and walking at an improved pace, but this session got disrupted by his incident. afterwards he reported he was really tired and wanted to return to his room. P: continue to try to improve functional activity.
--- NOTE | 2017-03-30 10:59 | OT PM DAY ---
Diagnosis : Weakness PM - Occupational Therapy S: The patient reports he is a little tired but willing to do some exercises. O: The patient performed upper body ergometer x3 minutes forward and 3 minutes backward. He then sat in wheelchair and performed wall pulleys with three kilograms for shoulder extension, rows, biceps curls, internal/external rotation x10 repetitions each, power web, and two pound ball push ups from chest and straight up into the air. A: The patient participated with his arm exercises. P: Continue seeing patient BID during the week and one time per day over the weekend for upper extremity strengthening, ADLs, and overall functional mobility. MTDD
--- NOTE | 2017-03-30 11:07 | OT AM DAY ---
Diagnosis : Weakness AM - Occupational Therapy S: The patient reports he is willing to get dressed today. O: The patient came from supine to sit with max assist. While sitting edge of bed he donned shirt with min assist. He needed assistance to start donning pants. He was able to get them from mid calf to mid thigh with stand by assist for balance while sitting. He needed mod assist to stand; he was able to stand and pull up the front part of his pants but he was not able to pull up the back part of his pants. Overall the patient needed 50% assistance to don pants today. The patient does have a sock aide in his room. He was able to don the socks over the sock aide but still needed min assist in order to pull the sock onto the foot. Downstairs in therapy we worked on upper extremity strengthening activities including upper body ergometer x3 minutes forward and 2 minutes backward followed by yellow theraband resisted horizontal abduction, biceps curls, internal rotation, and shoulder adduction. A: The patient is able to participate a little bit more with his ADLs; however, he still requires assistance. P: Continue seeing patient BID during the week and one time per day over the weekend for upper extremity strengthening, ADLs, and overall functional mobility. SHERYL
--- NOTE | 2017-03-30 11:14 | OT PM DAY ---
Diagnosis : Weakness PM - Occupational Therapy S: The patient reports he is pretty tired this afternoon. O: Today we worked on upper extremity strengthening activities including yellow theraband resisted horizontal abduction, biceps curls, internal/external rotation, and shoulder extension. We put two pound wrist weights on the patient and he completed shoulder extension; he was able to reach approximately 40 degrees of shoulder flexion and he was able to track mazes with the laser light for longer periods of time with the upper extremity. Once upstairs the patient performed a sit to stand transfer from the wheelchair with max assist. He needed max verbal cues but he was able to walk to the bed and with min assist he was able to turn and back up to the bed. The patient did try to get himself into bed and was able to use some momentum to get himself backed into bed; however, he could not lift his legs into the bed. The patient needed 75% assistance to move legs to the bed. The patient required max assist with bed mobility. The patient tried to move within bed but had a lot of difficulty. The patient had to urinate; he was not able to side lie to use the urinal; the therapist had to assist the patient with the urinal and had to push the patient into a side lying position. A: The patient is still having a lot of difficulty with bed mobility and functional tasks. P: Continue seeing patient BID during the week and one time per day over the weekend for upper extremity strengthening, ADLs, and overall functional mobility. MTDD
[2017-03-30 11:32] LABS: BUN/CREATININE RATIO 13.63 (6-20); CALCIUM 9.1 mg/dL (8.7-10.7); SERUM ALBUMIN 3.8 g/dL (3.5-4.8)
--- NOTE | 2017-03-30 11:40 | PDOC(PROG) ---
Interval History: Patient is doing great as no complaints he had a question about orthopedic surgery possibly doing the hip injection I told him that at present time the orthopedic surgeon was not planning on this he will follow up with him as an outpatient and decide at that point if he still has the pain which is now improved Objective : Data - Labs CBC and BMP: 03/28/17 06:46 03/30/17 10:39 Labs - Last 24 Hours: Laboratory Results 03/30/17 Range/Units 10:39 Sodium 141 (135-145) meq/L Potassium 4.5 (3.8-5.2) meq/L Chloride 110 (98-112) meq/L Carbon Dioxide 15 L (23-33) meq/L Anion Gap 16 (5-20) BUN 15 (7-22) mg/dL Creatinine 1.1 (0.70-1.50) mg/dL Estimated GFR (>60 ml/min/1.73m(2)) BUN/Creatinine Ratio 13.63 (6-20) Glucose 145 H (78-110) mg/dL Calculated Osmolality 295.0 H (267-292) mOsm/kg Calcium 9.1 (8.7-10.7) mg/dL Total Bilirubin 0.6 (0.3-1.2) mg/dL AST 44 (21-57) IU/L ALT 44 (21-72) IU/L Alkaline Phosphatase 85 (38-126) IU/L Total Protein 7.6 (6.1-8.0) g/dL Albumin 3.8 (3.5-4.8) g/dL Globulin 3.8 (2.50-4.10) g/dL Albumin/Globulin Ratio 1.00 L (1.3-2.0) mg/g Objective : Exam - General General Appearance: No Acute Distress, Cooperative - Respiratory Respiratory Exam: Clear to Auscultation - Bilaterally, Breathing Non Labored - Cardiovascular Cardiovascular Exam: RRR, No Murmur, No Clicks - GI/Abdominal GI/Abdominal Exam: Normal Bowel Sounds, Non Tender, Non Distended Assessment and Plan - Patient Problems (1) Pneumonia Current Visit: Yes Status: Resolved Comment: Resolved (2) Weakness generalized Current Visit: Yes Status: Acute Comment: Continue PTOT patient is waiting for snf placement at [facility] (3) Hypernatremia Current Visit: Yes Status: Acute Comment: Resolved (4) Hypokalemia Current Visit: Yes Status: Acute Comment: Replaced Photo / Body Diagrams - Uploaded Photos Uploaded Photos:
--- NOTE | 2017-03-30 16:17 | PT.PROG ---
Progress Note Progress Note: S. Patient stated that he doesn't want to do much for therapy this afternoon. O. Patient was wheeled to the therapy gym where he performed seated exercises in the form of; long arc quads, heel toe raises, marches, clamshells, ball squeezes, and resisted knee flexion patient ambulated 90 feet around the therapy gym with rest breaks every 20 feet. Patient was returned to his room where he was left in his chair with alarm and call light. A. Patient continues to require frequent rest breaks during ambulation and verbal cues to stay on task, complete all exercises and ambulate properly. Patient continues to struggle with weakness and would continue to benefit from skilled therapy however this can be addressed at the [facility] at this time. P. Continue POC until discharged.
--- NOTE | 2017-03-30 16:49 | OT.PROG ---
Progress Note Progress Note: S: pt wants to go to care center because he thinks he may not have to work as much there. pt reported that he had an accident in his pants. O: pt was seen in room, he completed bed mobility with min A, but needed mod A to stay upright as he neglects initiating core to stay upright. He completed transfer to bathroom x2 man MOd A. He needed max A with all ADL toileting/ hygiene. He completed transfer to sink, and then sat in w/c to wash hands. He then was transferred downstairs in w/c, still only displays ability to get one leg up on pedals. He needs cues to lift leg up while pushing him in w/c to prevent any injuries. He completed 5.5 min on UE bike to increase activity tolerance. A: pt displays low motivation, would prefer everyone complete tasks for him rather than put out energy to do them himself. He is very limited in his ability to complete ADL's due to overall mobility. P: continue per plan of care, d/c tomorrow to care center.
[2017-03-31 07:36] VITALS: RESP 20; TEMP 97.8
[2017-03-31] MEDS: ENOXAPARIN SODIUM 40 MG/0.4 ML SYRINGE SUBCUT SCH (08:09)
[2017-03-31] MEDS: DOCUSATE 100 MG CAPSULE PO SCH (08:10)
[2017-03-31] MEDS: TAMSULOSIN 0.4 MG CAPSULE PO SCH (08:10)
[2017-03-31] MEDS: Linaclotide Cap 290 MCG CAPSULE PO SCH (08:10)
[2017-03-31] MEDS: Multivitamin Tab 1 TAB PO SCH (08:10)
[2017-03-31] MEDS: PANTOPRAZOLE 40 MG TABLET PO SCH (08:10)
--- NOTE | 2017-04-01 09:32 | OT AM DAY ---
Diagnosis : Weakness AM - Occupational Therapy S: The patient reports that he is doing okay this morning. O: Today the patient worked on dressing skills using his transmitter engineer and sock aide. With the transmitter engineer the patient needed max verbal cues in order to use it correctly. He needed mod assist to pull pants up to knee level and needed step by step cues in order to use the transmitter engineer. The patient required mod assist to use the sock aide today. The patient was able to pull up the front and the back of the pants approximately 75% of the way and needed 25% assist to pull them up the rest of the way. When donning shirt, the patient is not able to sit forward without having a back support. He needed min assist to don the long sleeve shirt over his upper extremities. He needed cues to get the arms over his elbows and then put the shirt over his head with min assist. He needed mod assist to pull the shirt down to waist level. He had difficulty pulling the shirt down in the back. The patient needed a little bit of a rest to eat his breakfast after this. Downstairs in therapy he worked on therapeutic exercises including upper body ergometer x8 minutes, red theraband resisted internal/external biceps, shoulder extension, and shoulder adduction. A: The patient still needs cues to continue dressing self and has decreased strength and decreased mobility. He would benefit from continued skilled therapy to work on his strengthening and overall mobility as well as ADLs to improve his independence. P: Continue seeing patient BID during the week and one time per day over the weekend for upper extremity strengthening, ADLs, and overall functional mobility. SHERYL
--- NOTE | 2017-04-01 10:50 | PT AM DAY ---
Diagnosis : Weakness AM - Physical Therapy S: The patient states he is going to the Care [facility] this morning but he is willing to get to the chair. O: The patient performed three sit to stands and was fit for a bariatric walker. The patient was left in chair with alarm set and call light within reach. A: The patient was unable to perform more exercises due to fatigue this morning. P: Patient is being discharged to the Care Center. SHERYL
--- NOTE | 2017-04-01 11:20 | OT AM DAY ---
Diagnosis : Weakness AM - Occupational Therapy S: The patient was in his room upon arrival; he was getting ready to leave for the Care Center. O: The patient did agree to complete some exercises from his chair. The patient required mod to max assist for a sitting edge of chair transfer to standing. Once standing the patient was able to stand for approximately 45 seconds with min assist x2. The patient requires cues to stand up straight and to straighten his legs. Once up, the patient did say he needed to sit. When sitting, he did plop and was unable to control his descent into the chair. At that point the patient did say he had sparkles in his vision. The patient feels like this is related to his blood pressure. Once rested for 2-3 minutes the therapist did take a resting blood pressure which was 106/78. Once again the patient completed a sit to stand transfer with mod to max assist. Once standing the patient's blood pressure was taken again; it had dropped to 76/46. At that point the patient was not seeing sparkles in his vision. The patient stood for about 30 seconds and then sat back down. Blood pressure was taken again and it was again 78/46. The patient rested for a minute and his blood pressure was taken again and it jumped to 110/50. Nursing was notified of the drop in pressure when sitting. The patient then completed green theraband resisted rows, biceps flexion, shoulder extension, and horizontal abduction x15 repetitions. At this point the patient did say he was done. We did let him rest until his transfer to the Care Center. A: The patient is being discharged and his therapy at the Care Center will be resumed. P: Patient will be discharged to the Care Center. MTDD
== END 2017-03-31 10:05 | DRG 194 ==
LOC: ER 09:02 → MED/SURG 11:28 → UNDODISIN 03-24 08:55
PROVIDERS: ADMIT Internal Medicine; ATTEND Internal Medicine
DX: J18.9 Pneumonia, unspecified organism (principal); E87.0 Hyperosmolality and hypernatremia; W18.30XA Fall on same level, unspecified, initial encounter; R53.1 Weakness; E87.6 Hypokalemia
CPT/HCPCS: 36415; 70450; 71020; 72148; 73521; 73562; 80053; 80305; 81001; 81003; 82803; 82948; 83605; 83735; 83880; 84484; 85025; 87040; 93005; 93010; 94761; 96360; 96361; 97018; 97110; 97161; 97166; 97530; 97535; 99285; J0696; J1650; J7030; J7050; J7060

== ENCOUNTER → 2017-05-05 | Outpatient (CLI) | payer OTHER, BC ==
--- NOTE | 2017-05-07 14:44 | HOLTER ---
[facility] [place] Interpretive Statements [email or web address]
== END ==
LOC: RT 08:53
PROVIDERS: ATTEND Internal Medicine
DX: I50.9 Heart failure, unspecified (principal); R53.83 Other fatigue; R42 Dizziness and giddiness
CPT/HCPCS: 93225; 93226; 93227

== ENCOUNTER → 2017-05-18 | Outpatient (CLI) | payer BC | LOC: MMPC 11:11 | PROVIDERS: ATTEND Internal Medicine | DX: M17.0 Bilateral primary osteoarthritis of knee (principal) | CPT/HCPCS: 20610 ×2; 99214; G0463 ==

== ENCOUNTER 2017-06-29 17:48 | Emergency (ER) | payer BC ==
[2017-06-29 18:29] VITALS: RESP 20; TEMP 96.6
[2017-06-29] MEDS ORDERED: LIDOCAINE 2%/ EPI 1:200,000 - 20 ML VIAL SUBCUT ONE (18:29)
[2017-06-29] MEDS ORDERED: LIDOCAINE 2%/ EPI 1:200,000 - 20 ML VIAL ONE (18:32)
[2017-06-29] MEDS ORDERED: Sodium Chloride 0.9% 1,000 ML ONE (18:33)
--- NOTE | 2017-06-29 18:41 | PDOC ---
Fall HPI - General Chief Complaint: Fall Stated Complaint: FALL-HEAD LAC Date Seen by Provider: 06/29/17 Time Seen by Provider: 18:36 - History of Present Illness Initial Comments: Patient is a very nice 72-year-old gentleman lives at the local care home who tells me today that he had fallen multiple times and the last time that he fell he only remembers getting up. He had an obvious laceration to his right lateral forehead therefore he was brought to the emergency department by EMS. Here in the emergency department today he says that he is been increasingly weak over last few days he's been treated for a urinary tract infection with some oral antibiotics though he's not sure what that antibiotic is. He denies any other substantial symptoms such as fever or chills or shortness of breath or dysuria and is only complaining about the laceration on his for head. He is not complaining about substantial headache he does not have significant altered mental status this time. His vitals appear benign at this time as well. Have you received a tetanus shot in the past 10 years?: Unknown - Patient Home Medications Home Medications: Home Medications Docusate Sodium [Doc-Q-Lace] 1 cap PO BID cap 08/18/14 Multivitamin [Iiu-Sheswc-Uuove] 1 tab PO QD tab 08/18/14 Furosemide 1 tab PO QAM #90 tab 11/25/16 Linaclotide [Linzess] 1 cell PO DAILY #90 cap 11/25/16 Pantoprazole Sodium 1 tab PO QD #90 tab 11/25/16 Tamsulosin HCl [Flomax] 0.4 mg PO DAILY cap 03/29/17 Acetaminophen [Tylenol] 2 tab PO Q6H PRN tab 03/30/17 Nystatin 1 applic TP TID PRN 03/30/17 Potassium Chloride 2 tab PO BID tab 03/30/17 Amoxicillin 500 mg PO TID 06/29/17 - Patient Allergies Allergies/Adverse Reactions: Allergies Allergy/AdvReac Type Severity Reaction Status Date / Time No Known Allergies Allergy Verified 06/29/17 18:13 Past Medical History - heen HEENT History: Blindness Additional HEENT History: left eye Cardiovascular History: Hypertension Respiratory History: Denies History Gastrointestinal History: GERD Additional Gastrointestinal History: ruptured ulcer with emergency surgery to fix Genitourinary History: Denies History Endocrine History: Denies History Musculoskeletal History: Back Pain, Joint Pain Prosthesis or Implant: No Additional Musculoskeletal History: left hip and knee pain Neurological History: Denies History Blood Disorders: Denies History Psychiatric History: Denies History History of Sexually Transmitted Diseases: No Male Reproductive History: Denies History Cancer History: Denies History In Past Year Been Physically Harmed or Verbally Threatened: No History of MDRO: No History of Other Communicable Diseases: No Tobacco Use: Former Smoker Alcohol Use: Rarely Substance Use Type: None Previous Surgical History: Yes Type / Date of Surgery: BILATERAL CATARACTS, TONSILLECTOMY Anesthesia Reactions: No Malignant Hyperthermia: No Significant Family History: Cancer, Other (please comment) Additional Family History: FATHER WITH BRAIN CANCER Past Medical History Reviewed: Reviewed - No Changes ROS - Limitations ROS Limitations: No Limitations Constitution: REPORTS: Denies Symptoms, Chills, Fever Cardiovascular: REPORTS: Denies Cardiac Symptoms Respiratory: REPORTS: Cough Non Productive Neurological: REPORTS: Denies Neuro Symptoms Gastrointestinal: REPORTS: Denies GI Symptoms Fall Physical Exam - General Appearance General Appearance: POSITIVE: Alert, Cooperative - HEENT HEENT: POSITIVE: Other (On the right lateral aspect of his brow he has a approximately 3-4 cm laceration is through into subcutaneous tissue no obvious fracture the orbit.) - Neck Neck: POSITIVE: Non Tender - Respiratory / CVS Respiratory / CVS: POSITIVE: Chest Non Tender - Abdomen Abdomen: Soft: (All Quadrants), Normal Bowel Sounds: (All Quadrants), Denies Tenderness: (All Quadrants) - Neuro / Psych Neuro / Psych: POSITIVE: Oriented X3, 3d animator Normal As Tested - Skin Skin: POSITIVE: Intact Procedures - Laceration/Wound Repair Did patient have a laceration repair: Yes Site of Laceration/Wound: right brow Wound Length (cm): 2 Wound's Depth, Shape: Into subcutaneous tissue Skin Prep: Shur-Clesammy Local Anesthesia Used - Indicate Amt Used in Comment: Lidocaine 2% with Epinephrine: Yes Wound Explored: Clean Wound Debrided: Minimal Suture Size/Type: 4:0, Ethilon Number of Sutures: 1 (running) Layer Closure?: No Fall Progress - Results Reviewed by me Lab Results Reviewed: Yes Lab Results:: Laboratory Results 06/29/17 06/29/17 Range/Units 19:19 19:25 WBC 14.15 H (4.8-10.8) 10^3/uL RBC 4.78 (4.70-6.10) 10^6/uL Hgb 13.5 L (14.0-18.0) g/dL Hct 41.4 L (42.0-52.0) % MCV 86.6 (80-90) FL MCH 28.2 (27-31) PG MCHC 32.6 L (33-37) g/dL RDW Std Deviation 45.5 (39-50) fL RDW Coeff of Jyoti 14.7 H (11.5-14.5) % Plt Count 236 (140-350) 10*3/uL MPV 10.3 (7.4-12.2) FL Immature Gran % (Auto) 0.3 (0-5) % Neut % (Auto) 87.7 H (50-80) % Lymph % (Auto) 5.7 L (10-50) % [place] % (Auto) 5.9 (5-15) % Eos % (Auto) 0.2 (0-8) % Baso % (Auto) 0.2 (0-1) % Immature Gran # (Auto) 0.04 10*3/UL Neut # (Auto) 12.42 10*3/UL Lymph # (Auto) 0.80 10*3/uL [place] # (Auto) 0.83 H (0.3-0.8) 10*3/UL Eos # (Auto) 0.03 10*3/UL Baso # (Auto) 0.03 10*3/UL WBC Morphology Comment Normal morphology (NORM) Plt Morphology Comment Normal morphology (NORM) RBC Morph Comment Normal morphology (NORM) Sodium 141 (135-145) meq/L Potassium 4.8 (3.8-5.2) meq/L Chloride 109 (98-112) meq/L Carbon Dioxide 24 (23-33) meq/L Anion Gap 8 (5-20) BUN 30 H (7-22) mg/dL Creatinine 1.2 (0.70-1.50) mg/dL Estimated GFR (>60 ml/min/1.73m(2)) BUN/Creatinine Ratio 25.00 H (6-20) Glucose 115 H (78-110) mg/dL Calculated Osmolality 298.0 H (267-292) mOsm/kg Calcium 9.5 (8.7-10.7) mg/dL Magnesium 2.1 (1.6-2.4) mg/dL Total Bilirubin 0.7 (0.3-1.2) mg/dL AST 18 L (21-57) IU/L ALT 35 (21-72) IU/L Alkaline Phosphatase 97 (38-126) IU/L Total Protein 7.5 (6.1-8.0) g/dL Albumin 3.8 (3.5-4.8) g/dL Globulin 3.6 (2.50-4.10) g/dL Albumin/Globulin Ratio 1.00 L (1.3-2.0) mg/g Ur Collection Type Voided specimen Urine Color Yellow Urine Clarity Clear (CLEAR) Urine pH 5.0 (5.0-8.5) Ur Specific [place] 1.020 (1.005-1.030) Urine Protein Negative (NEG) mg/dl Urine Glucose (UA) Negative (NEG) mg/dL Urine Ketones Trace (NEG) Urine Occult Blood Negative (NEG) Urine Nitrate Negative (NEG) Urine Bilirubin Small (NEG) Urine Urobilinogen 1.0 (0.2) EU/dL Ur Leukocyte Esterase Negative (NEG) Ur Culture Indicated? Culture not set - Patient's Progress MDM / ED Course: This patient was feeling more weak than normal today he is having a couple of falls last of which resulted in a laceration to his right brow. We fixed a laceration on his brow. I went ahead and check some electrolytes and a CBC to see if there is anything remarkable in regards to his symptoms of increasing weakness. Everything was for the most part benign with the exception of a white blood cell count that was around 14. This was left shifted but the patient's urinalysis is benign. His physical exam reveals clear lungs and an oxygen saturation greater than 94% and respiratory rate is normal. He also has no fever. Ultimately I think the elevation in his CBC is due to de-margination a stress response from his fall his laceration. I will ask that this be repeated at the care home the next 1-2 days and that he be seen by his provider in the next 1-2 days as well. Certainly we need to keep an eye on him from a neurologic standpoint after a fall with a laceration and head injury. He 's awake and he's alert here he's speaking coherently answers questions appropriately he has a mild headache but no other significant concerns. I last care home staff to keep a close eye on him do some neuro checks and bring him back if he starts to experience increasing neurologic difficulties problems or increasing headaches or other concerns. Patient Care Time - Estimated PCT Patient Care Time (In Minutes): 35 Vital Signs - VS Reviewed Vital Signs Reviewed: Yes Discharge Clinical Impression: Laceration - injury, Leukocytosis Discharge Disposition: Discharged to Home Condition: Stable Additional Instructions: Have sutures removed in 7 days Monitor for signs and symptoms of hypoxia or fever or other signs of infection Have patient CBC repeated in one to 2 days to make sure that the white blood cell count is improving Patient should return for further evaluation if he starts to experience any sort of increasing altered mental status increasing headaches nausea vomiting or other neurologic concerns Have patient follow-up with primary care provider or be seen in the care home in the next 2 days for follow-up in regards to leukocytosis and general feeling of increased weakness. Please monitor the patient every couple hours overnight to ensure that his neurologic status is stable with neuro checks. Follow Up With: KYLE DANG [Primary Care Provider] -
[2017-06-29 19:21] LABS: BASOPHILS # (AUTO) 0.03 10*3/UL; BASOPHILS % (AUTO) 0.2 % (0-1); EOSINOPHILS # (AUTO) 0.03 10*3/UL; EOSINOPHILS % (AUTO) 0.2 % (0-8); HEMATOCRIT 41.4 % (42.0-52.0); HEMOGLOBIN 13.5 g/dL (14.0-18.0); MEAN CORPUSCULAR HEMOGLOBIN 28.2 PG (27-31); MEAN CORPUSCULAR HGB CONC 32.6 g/dL (33-37); MEAN CORPUSCULAR VOLUME 86.6 FL (80-90); MEAN PLATELET VOLUME 10.3 FL (7.4-12.2); MONOCYTES # (AUTO) 0.83 10*3/UL (0.3-0.8); MONOCYTES % (AUTO) 5.9 % (5-15); NEUTROPHILS # (AUTO) 12.42 10*3/UL; NEUTROPHILS % (AUTO) 87.7 % (50-80); RED BLOOD COUNT 4.78 10^6/uL (4.70-6.10)
[2017-06-29 19:28] LABS: BILIRUBIN,URINE SMALL (NEG); CLARITY,URINE CLEAR (CLEAR); COLOR,URINE YELLOW; GLUCOSE, URINE (UA) NEGATIVE (NEG); NITRATE,URINE NEGATIVE (NEG); OCCULT BLOOD,URINE NEGATIVE (NEG); PROTEIN,URINE NEGATIVE (NEG)
[2017-06-29 19:31] LABS: CALCIUM 9.5 mg/dL (8.7-10.7); MAGNESIUM 2.1 mg/dL (1.6-2.4); SERUM ALBUMIN 3.8 g/dL (3.5-4.8)
[2017-06-29 19:36] LABS: URINE SAMPLE TYPE VOIDED SPECIMEN
[2017-06-29 19:41] LABS: PLATELET MORPHOLOGY COMMENT NORMAL MORPHOLOGY (NORM); RBC MORPHOLOGY COMMENT NORMAL MORPHOLOGY (NORM); WBC MORPHOLOGY COMMENT NORMAL MORPHOLOGY (NORM)
[2017-06-29] MEDS ORDERED: Sodium Chloride 0.9% 1,000 ML PRIMARY IV ONE (19:41)
[2017-06-29] MEDS ORDERED: ACETAMINOPHEN 325 MG TABLET PO ONE ×2 (19:53→19:55)
== END 2017-06-29 20:00 ==
LOC: ER 17:48
DX: S01.81XA Laceration without foreign body of other part of head, initial encounter (principal); D72.829 Elevated white blood cell count, unspecified; I10 Essential (primary) hypertension; W18.30XA Fall on same level, unspecified, initial encounter; Y92.129 Unspecified place in nursing home as the place of occurrence of the external cause
CPT/HCPCS: 12011; 80053; 81003; 83735; 85025; 99282; J7030